=== PATIENT | female | born 1960 | race Caucasian/White ===

== ENCOUNTER 2019-06-18 11:11 | Inpatient (IN) | payer OTHER, SELFPAY ==
[~2019-06-18 11:11] MED LIST: Azithromycin 250 MG TAB PO SCH
[2019-06-18] MEDS ORDERED: methylPREDNISolone Sod Succ/PF 125 MG/2 ML VIAL ONE (11:21)
[2019-06-18 11:31] LABS: Actual Bicarbonate (HCO3a) 11.1 mEq/L (22-28); Analyzer IN Cardio ER; Base Excess (BEa) -14.8 mEq/L (-2.0 to +3.0); CO2 Tension 26.7 mmHg (35.0-45.0); Calcium, Ionized 1.13 mmol/L (1.12-1.30); Carboxyhemoglobin (COHb) 0.1 gm% (0.0-3.0); Hemoglobin (Hb) 12.1 g/dL (12.0-16.0); O2 Tension (PaO2) 86.3 mmHg (80.0-100.0); Potassium - ABG Lab 5.13 mmol/L (3.70-5.30)
[2019-06-18 11:32] LABS: Puncture Site RBRACH; pH, Arterial 7.24 (7.35-7.45)
[2019-06-18 11:33] LABS: ALV-art Gradient 94.225 (0-20)
[2019-06-18 11:49] LABS: #Lymphocytes 0.8 thou/uL (1.20-3.40); #Monocytes 0.7 thou/uL (0.11-0.59); #Neutrophils 11.9 thou/uL (1.40-6.50); %Basophils 0.3 % (0.0-1.0); %Eosinophils 0.1 % (0.0-10.0); %Monocytes 4.8 % (0.0-10.0); %Neutrophils 88.7 % (42.0-75.0); Hemoglobin 11.7 g/dL (12.0-16.0); Mean Corpuscular Volume 93.9 fL (78.0-98.0); Mean Platelet Volume 8.1 fL (7.4-10.4); Platelet Count 337 thou/uL (130-400); RBC Distribution Width 14.9 % (11.5-14.5); Red Blood Cell (RBC) Count 3.91 mill/uL (4.20-5.40); White Blood Cell (WBC) Count 13.4 thou/uL (4.8-10.8)
--- NOTE | 2019-06-18 11:53 | RAD ---
EXAM: XR Chest 1 View Portable PROVIDED CLINICAL HISTORY: Dyspnea COMPARISON: None FINDINGS: Examination is limited by patient body habitus. Cardiac silhouette appears enlarged, which may be maira st partially on the basis of portable technique. Bibasilar pleural-parenchymal opacities are noted, left greater than right. There is no evidence for pneumothorax. IMPRESSION: 1. Cardiomegaly. 2. Bibasilar pleural-parenchymal opacity, left greater than right. This may reflect pleural fluid wit h adjacent atelectasis and/or infiltrate. Follow-up is recommended.
[2019-06-18 12:07] LABS: ALT (SGPT) 1048 U/L (8-55); AST (SGOT) 1452 U/L (5-34); Alkaline Phosphatase 89 U/L (40-110); Anion Gap 24 mmol/L (10-20); BUN (Urea Nitrogen) 17 mg/dL (9.8-20.1); Bilirubin, Total 1.4 mg/dL (0.2-1.2); Calc. Creatinine Clearance 0 mL/min (70-130); Calcium 8.9 mg/dL (7.8-10.44); Carbon Dioxide 17 mmol/L (22-29); Chloride 101 mmol/L (98-107); Estimated GFR-MDRD 40; Globulin 3.5 g/dL (2.4-3.5); Glucose 115 mg/dL (70-105); Potassium 4.6 mmol/L (3.5-5.1); Protein, Total 7.5 g/dL (6.0-8.3); Sodium 137 mmol/L (136-145)
[2019-06-18 12:29] LABS: CKMB 1.8 ng/mL (0-6.6)
[2019-06-18] MEDS ORDERED: Aspirin Chewable 81 MG TAB ONE (12:34)
[2019-06-18] MEDS ORDERED: Furosemide 40 MG/4 ML VIAL ONE ×2 (12:34→16:41)
--- NOTE | 2019-06-18 12:43 | PDOC.FPRHP ---
- History of Present Illness Chief Complaint: SOB / Cough History of Present Illness: Ms. Real is a 59yoF who sees [facility] who presents for difficulty breathing. She is accompanied by her son and daughter who assisted with giving the history. They report a cough and increasing shortness of breath for the past 2-2.5 weeks that has progressively been getting worse. In the last 12 hours it has significantly worsened, with increased work of breathing which is why the family brought her to the ER. She had subjective fevers last night, she woke with sweating. The cough has been dry for the most part, last night she has had yellow sputum. She has never had shortness of breath like this before. No known sick contacts, she has had no other URI symptoms. Family states that she had bronchitis about a month ago that she didn't get over. Of note, her mother recently . Her was Thursday of this week. ED Course: Asa 324, Lasix 40mg, DuoNeb x2, Methylprednisolone 125mg - Allergies/Adverse Reactions Allergies Allergy/AdvReac Type Severity Reaction Status Date / Time tramadol Allergy Verified 06/18/19 21:33 - History PMHx: HTN Borderline DM PVD PSHx: Stent x 2 (Bilateral common iliac artery stents) FHx: Father: , CHF Mother: recently , dementia Brother: DM, HTN Social: Smokes 0.5-1ppd x 40 years. Daily alcohol use, 1 bottle of wine q 1-2 days. Denies illicit drug use. - Review of Systems General: reports: fever/chills, night sweats. denies: weight/appetite/sleep changes Eyes: denies: eye pain, vision changes ENT: denies: nasal congestion, rhinorrhea Respiratory: reports: cough, congestion, shortness of breath, exercise intolerance Cardiovascular: reports: edema, paroxysmal nocturnal dyspnea, orthopnea. denies : chest pain, palpitation Gastrointestinal: reports: abdominal pain, other (reflux). denies: nausea, vomiting, diarrhea, constipation, GI bleeding Genitourinary: reports: incontinence. denies: dysuria, polyuria Skin: denies: rashes, lesions Musculoskeletal: reports: pain, other (difficulty walking - it is painful). denies: tenderness, stiffness Neurological: reports: weakness. denies: numbness, syncope, seizure Psychological: denies: anxiety, depression - Vital signs HR 114, BP 132/99, O2 98% on BiPap (12/6 30%FiO2), Respirations 20 - Physical Exam Constitutional: awake, alert and oriented, well developed -Constitutional: On bipap, short of breath HEENT: normocephalic and atraumatic, EOMI, conjunctiva clear, grossly normal vision, grossly normal hearing, MMM -HEENT: Poor dentition Neck: supple, trachea midline Chest: no-tender to palpation Heart: normal S1/S2, no murmurs/rubs/gallops -Heart: Tachycardic, 2+ pitting edema to the bilateral lower extremities -Lungs: Tachypneic, poor air movement, diminished breath sounds bilaterally, wheezes in the upper lung wadsworth. Abdomen: soft, non-tender, bowel sounds present, no masses/distention Musculoskeletal: normal structure, normal tone Neurological: no focal deficit, CN II-XII intact Skin: no rash/lesions, good turgor, capillary refill <2 seconds Heme/Lymphatic: no unusual bruising or bleeding, no purpura, no petechia Psychiatric: normal mood and affect, intact recent and remote memory FMR H&P: Results - Labs Result Diagrams: 06/19/19 04:14 06/19/19 04:14 Lab results: WBC 13.4 thou/uL (4.8-10.8) H 06/18/19 11:31 Hgb 11.7 g/dL (12.0-16.0) L 06/18/19 11:31 Hct 36.7 % (36.0-47.0) 06/18/19 11:31 MCV 93.9 fL (78.0-98.0) 06/18/19 11:31 Plt Count 337 thou/uL (130-400) 06/18/19 11:31 Neutrophils % 88.7 % (42.0-75.0) H 06/18/19 11:31 ABG pH 7.24 (7.35-7.45) L* 06/18/19 11:27 ABG pCO2 26.7 mmHg (35.0-45.0) L 06/18/19 11:27 ABG pO2 86.3 mmHg (80.0-100.0) 06/18/19 11:27 Sodium 137 mmol/L (136-145) 06/18/19 11:32 Potassium 4.6 mmol/L (3.5-5.1) 06/18/19 11:32 Chloride 101 mmol/L (98-107) 06/18/19 11:32 Carbon Dioxide 17 mmol/L (22-29) L 06/18/19 11:32 BUN 17 mg/dL (9.8-20.1) 06/18/19 11:32 Creatinine 1.34 mg/dL (0.6-1.1) H 06/18/19 11:32 Glucose 115 mg/dL (70-105) H 06/18/19 11:32 Calcium 8.9 mg/dL (7.8-10.44) 06/18/19 11:32 Total Bilirubin 1.4 mg/dL (0.2-1.2) H 06/18/19 11:32 AST 1452 U/L (5-34) H 06/18/19 11:32 ALT 1048 U/L (8-55) H 06/18/19 11:32 Alkaline Phosphatase 89 U/L (40-110) 06/18/19 11:32 CK-MB (CK-2) 1.8 ng/mL (0-6.6) 06/18/19 11:32 B-Natriuretic Peptide 1844.3 pg/mL (0-100) H 06/18/19 11:31 Serum Total Protein 7.5 g/dL (6.0-8.3) 06/18/19 11:32 Albumin 4.0 g/dL (3.5-5.0) 06/18/19 11:32 - EKG Interpretation EKG: Sinus tach - Radiology Interpretation Chest x-ray Status: report reviewed by me (1. Cardiomegaly. 2. Bibasilar pleural- parenchymal opacity, left greater than right. This may reflect pleural fluid with adjacent atelectasis and/or infiltrate. Follow-up is recommended.) FMR H&P: A/P - Problem List (1) CHF exacerbation Current Visit: Yes Status: Suspected Code(s): I50.9 - HEART FAILURE, UNSPECIFIED (2) COPD (chronic obstructive pulmonary disease) Current Visit: Yes Status: Suspected (3) HTN (hypertension) Current Visit: Yes Status: Acute Code(s): I10 - ESSENTIAL (PRIMARY) HYPERTENSION (4) PVD (peripheral vascular disease) Current Visit: Yes Status: Acute Code(s): I73.9 - PERIPHERAL VASCULAR DISEASE, UNSPECIFIED - Plan CHF, suspected, in acute exacerbation - Chest x-ray appears fluid overloaded. BNP 1844. 2+ LE Edema. - Initially required BiPap, improved with lasix and was able to tolerate being on room air. Admit to telemetry. - s/p 80mg total Lasix in ED. Will monitor strict I/O. Lasix 20mg IV BID ordered for tomorrow. - Echo ordered - Repeat chest x-ray tomorrow. COPD, suspected, in acute exacerbation - No formal diagnosis. 40-50pk year history. Wheezing in upper lung wadsworth, improved with DuoNeb. - DuoNebs Scheduled. Prednisone 40 daily. Azithromycin po daily. - Will monitor for improvement. - Recommend formal PFTs once well in outpatient setting. HTN - unclear home medication list, will reconcile and restart. Alcohol use disorder - Will add ASE protocol to monitor for and prevent withdrawal symptoms if they should arise. Transaminitis - AST / ALT markedly elevated. - Will order coag panel and test for Hepatitis. - Repeat CMP in the morning. Elevated troponin - 0.077 > 0.103 > 0.148 - Will continue to trend. Likely 2/2 demand ischemia from CHF exacerbation. - Denies chest pain. Disposition/LOS: Dispo: Stable, inpatient VTE PPX: lovenox Code: Full FMR H&P: Upper Level - Plan Date/Time: 06/18/19 1242 I, Martinez Serrano PGY2, have evaluated this patient and agree with findings/ plan as outlined by rn internal medicine resident. Pertinent changes/additions are listed here. 59yo F with pmh HTN and obesity presents in respiratory distress. Pt gave very limited history however he children disclosed that she does not follow with the doctor often in the last few years. She has extensive smoking history though she has no standing Dx of COPD or CHF. In hospital pt was in respiratory distress, CXR showed bibasilar fluid and cardiomegaly, BNP elevated, wheezing was heard on exam. Initially pt required bipap but was eventually weaned to NC in ER. We will admit her to tele for mgmt of acute hypoxic respiratory failure 2 /2 COPD exacerbation with steroids, duonebs, and O2prn, and for CHF with lasix IV BID, strict i/o daily weights. Will get echo and likely cardiology consult tomorrow for new onset CHF. All other chronic problems per the rn internal medicine note above. Addendum - Attending - Attending Attestation Date/Time: 06/19/19808 I personally evaluated the patient and discussed the management with the team on day of admission. I agree with the History, Examination, Assessment and Plan documented above with any addition or exceptions noted below. Clinical HF -diurese, ddx includes cirrhosis -TTE Elevated LFTs c inc INR -isch/hep/APAP -send infecitous workup, also consider congestive hepatopathy -RUQ sono RADHA on CKD -cardiorenal vs HRS vs other -diurese as clinically volume overloaded Likely COPD exac -vs wheezing from CHF -steroids, nebs -was off of bipap prior to leaving ER
[2019-06-18] MEDS ORDERED: Calcium Carbonate 500 MG ChewTAB PO PRN (13:30)
[2019-06-18] MEDS ORDERED: Senokot S 8.6-50 MG TAB PO PRN (13:30)
[2019-06-18] MEDS ORDERED: Ondansetron ODT 4 MG TAB PO PRN (13:30)
[2019-06-18] MEDS ORDERED: Guaifenesin DM 100-10/5 ML UDCUP PO PRN (13:30)
[2019-06-18 15:01] LABS: Hemoglobin A1c 5.7 % (4.0-6.0)
[2019-06-18 15:20] LABS: Troponin I 0.103 ng/mL (< 0.028)
[2019-06-18 15:34] LABS: HIV (1/2) Antibody/Antigen Non-Reactive (NonReactive); HIV 1/2 INDEX 0.08 S/CO (<1.00); Hep C IgG Ab Non-Reactive (NonReactive); Hep C Index 0.24 S/CO (0-0.79); Syphilis Antibody Nonreactive (Nonreactive); Syphilis Antibody Index 0.07 S/CO (<1.00 Non-Reactive)
[2019-06-18] MEDS ORDERED: Diazepam 5 MG TAB PO PRN (17:38)
[2019-06-18] MEDS ORDERED: Thiamine HCl 200 MG/2 ML VIAL IM SCH (17:45)
[2019-06-18] MEDS ORDERED: Diazepam 5 MG TAB PO SCH (17:45)
[2019-06-18 18:04] LABS: Troponin I 0.148 ng/mL (< 0.028)
[2019-06-18 18:38] LABS: HBCM Index 0.06 S/CO (0-0.79); HBSAg Index 0.31 S/CO (0-0.99); Hep A IgM AB Non-Reactive (NonReactive); Hep A IgM S/CO 0.11 S/CO (0-0.79); Hep B Surf Ag Non-Reactive S/CO (NonReactive); Hep C IgG Ab Non-Reactive (NonReactive); Hepatitis B Core IgM Abs Non-Reactive (NonReactive)
[2019-06-18] MEDS: Furosemide 20 MG/2 ML VIAL SLOW IVP SCH (19:58)
[2019-06-18 21:22] LABS: Troponin I 0.125 ng/mL (< 0.028)
[2019-06-18] MEDS: Nicotine 14 MG PATCH TD SCH (21:22)
[2019-06-19 01:08] LABS: Troponin I 0.125 ng/mL (< 0.028)
[2019-06-19] MEDS: Benzonatate 100 MG CAP PO PRN (02:42)
[2019-06-19] MEDS ORDERED: Diazepam 5 MG TAB PO PRN (04:00)
[2019-06-19] MEDS: Furosemide 20 MG/2 ML VIAL SLOW IVP SCH ×2 (04:56→12:54)
[2019-06-19 05:14] LABS: INR-International Normal Ratio 2.2; PTT 40.6 SEC (22.9-36.1); Prothrombin Time 24.2 SEC (12.0-14.7)
[2019-06-19 05:15] LABS: #Lymphocytes 0.5 thou/uL (1.20-3.40); #Monocytes 0.4 thou/uL (0.11-0.59); #Neutrophils 13.5 thou/uL (1.40-6.50); %Eosinophils 0.1 % (0.0-10.0); %Lymphocytes 3.7 % (21.0-51.0); %Monocytes 2.7 % (0.0-10.0); %Neutrophils 93.5 % (42.0-75.0); Hemoglobin 10.3 g/dL (12.0-16.0); Mean Corpuscular HGB CONC 33.6 g/dL (32.0-36.0); Mean Corpuscular Hemoglobin 30.5 pg (27.0-31.0); Mean Platelet Volume 8.6 fL (7.4-10.4); Platelet Count 168 thou/uL (130-400); RBC Distribution Width 14.8 % (11.5-14.5); Red Blood Cell (RBC) Count 3.36 mill/uL (4.20-5.40); White Blood Cell (WBC) Count 14.5 thou/uL (4.8-10.8)
[2019-06-19 05:32] LABS: Anion Gap 18 mmol/L (10-20); BUN (Urea Nitrogen) 27 mg/dL (9.8-20.1); Calc. Creatinine Clearance 69 mL/min (70-130); Calcium 8.8 mg/dL (7.8-10.44); Carbon Dioxide 21 mmol/L (22-29); Chloride 100 mmol/L (98-107); Estimated GFR-MDRD 43; Glucose 86 mg/dL (70-105); Potassium 4.2 mmol/L (3.5-5.1); Sodium 135 mmol/L (136-145)
[2019-06-19 05:38] LABS: Troponin I 0.122 ng/mL (< 0.028)
--- NOTE | 2019-06-19 06:34 | PDOC.FM ---
- Subjective Subjective: Overnight residents were paged for hypoxia with SpO2 in 80's on 4L. She was evaluated and repeat ABG was added as well as another 40 of lasix IV. She was noted ot have 13 beat run of SVT, she was asymptomatic. See event note for details. This morning she was using accessory muscles to breath but appeared comfortable. Duoneb was placed during time of evaluation. Did endorse SOB but improved from overnight. Endorses cough. Denies fever, chills. - Objective MAR Reviewed: Yes Vital Signs & Weight: Vital Signs (12 hours) Temp Pulse Resp BP Pulse Ox 06/19/19 04:55 118 H 26 H 136/83 94 L 06/19/19 03:25 99.5 F 115 H 26 H 126/74 98 06/19/19 02:10 115 H 20 06/18/19 22:38 22 H 06/18/19 21:15 98.7 F 113 H 22 H 136/61 96 06/18/19 19:52 103 H 16 93 L Weight Weight 92.164 kg I&O: 06/17/19 06/18/19 06/19/19 06:59 06:59 06:59 Intake Total 1440 Output Total 250 Balance 1190 Result Diagrams: 06/19/19 04:14 06/19/19 04:14 Phys Exam - Physical Examination In mild distress HEENT: moist MMs Neck: supple Bilateral crackles with expiratory wheezing heard in upper lung w[place]sworth Cardiovascular: RRR, no significant murmur Gastrointestinal: soft, non-tender Trace edema LE Neurological: moves all 4 limbs Psychiatric: normal affect, A&O x 3 Skin: no rash Dx/Plan - Plan Plan: Suspect acute CHF exacerbation - Currently on NC - Lasix 60mg IV this AM. Unclear how much she diuresed overnight, added strict I &Os - Echo ordered - Repeat CXR pending - Repeat ABG pending COPD, suspected, in acute exacerbation - No formal diagnosis. 40-50pk year history - DuoNebs Scheduled. Prednisone 40 daily. - Will check procal from yesterday and consider discontinuing Azithromycin - PFTs outpatient 13 beats of SVT - Cards consulted. Asymptomatic HTN - Continue home meds Alcohol use disorder - ASE 4 this AM Transaminitis - AST/ALT markedly elevated. Repeat liver panel pending. - Hep studies and RUQ US pending Elevated troponin, downtrending - Likely 2/2 demand ischemia from CHF exacerbation DVT Ppx: Lovenox Code Status: Full Addendum - Attending - Attending Attestation Date/Time: 06/19/19 4545 I personally evaluated the patient and discussed the management with the team. I agree with the History, Examination, Assessment and Plan documented above with any addition or exceptions noted below. Improved from yesterday. She is now febrile. Will check flu and expand antibiotics. Appreciate cards and GI's input.
[2019-06-19 06:43] LABS: CO2 Tension 31.1 mmHg (35.0-45.0); O2 Tension (PaO2) 113.6 mmHg (80.0-100.0); pH, Arterial 7.39 (7.35-7.45)
[2019-06-19 06:44] LABS: ALV-art Gradient 104.205 (0-20); Actual Bicarbonate (HCO3a) 18.8 mEq/L (22-28); Analyzer IN Cardio OR; Base Excess (BEa) -5.1 mEq/L (-2.0 to +3.0); Calcium, Ionized 1.09 mmol/L (1.12-1.30); Carboxyhemoglobin (COHb) 0.3 gm% (0.0-3.0); Hemoglobin (Hb) 10.9 g/dL (12.0-16.0); Puncture Site RBRACH
[2019-06-19] MEDS ORDERED: Furosemide 40 MG/4 ML VIAL SLOW IVP SCH (06:45)
--- NOTE | 2019-06-19 06:46 | PDOC.BPN ---
- Brief Progress Note Paged to bedside for persistent o2 sat in the high 80s Patient on 4L o2 which is what she was on at time of admission She can speak in complete sentences but get SOB at the end of the sentences Decreased sounds at the bases, exp wheeze throughout Will check ABG, suspect there is a component of undiagnosed COPD Moved duoneb up, moved up steroids, she had not received any to this point Added 40mg IV lasix one time for total of 60mg IV this AM She had not been on strict I/Os overnight, added Patient had a 13 beat run of SVT noted on tele, marketing pr intern was in the room with her when this occurred and she did not have symptoms Will add on mag, potassium was 4.1 Awaiting Cards eval for new onset HF, may be candidate for cath If patient worsens she would need to go an Bipap and likely move to IMCU. Will hold off at this time and try above treatments first.
[2019-06-19] MEDS ORDERED: predniSONE 20 MG TAB PO SCH ×2 (07:00→09:00)
[2019-06-19 07:11] LABS: ALT (SGPT) 3510 U/L (8-55); Alkaline Phosphatase 95 U/L (40-110); Bilirubin, Direct 1.1 mg/dL (0.1-0.3); Bilirubin, Total 1.6 mg/dL (0.2-1.2); Protein, Total 7.3 g/dL (6.0-8.3)
[2019-06-19 07:23] LABS: AST (SGOT) Greater than 3500 U/L (5-34)
--- NOTE | 2019-06-19 07:41 | PDOC.BPN ---
- Brief Progress Note Called to bedside for code green, code green was called for fever of 100.9 and nursing staff concern for overall status Patient just revieved lasix 5 min ago, Prednisone 20min ago ABG much improved from admission Patient states she feels no different from time of evaluation at 0630 She has no increased SOB, denies CP, no interval arrhythmias noted on tele CXR still pending Will add blood cultures and Rocephin 1g IV Patient is tachycardic, consider CTA to r/o PE if patient does not improve with above treatments
[2019-06-19] MEDS: Acetaminophen 325 MG TAB PO PRN (07:46)
--- NOTE | 2019-06-19 09:01 | ULT ---
GALLBLADDER ULTRASOUND: HISTORY: Elevated LFTs. FINDINGS: Real-time imaging of the right upper quadrant shows a gallbladder with some moderate gallbladder wall thickening and edema within the gallbladder wall. There are no stones identified. The common duct is 4 mm. The liver shows no focal abnormalities. The right kidney is normal in size and not obstructed. The pancreas is largely obscured. IMPRESSION: 1. Thick-walled, edematous appearing gallbladder wall. The possibility of an acalculous cholecystitis is not excluded. Consideration for a hepatobiliary scan is recommended. 2. Incidental note is made of what appears to be a small right pleural effusion. POS: [facility]
--- NOTE | 2019-06-19 09:15 | RAD ---
PORTABLE CHEST: HISTORY: COPD exacerbation. COMPARISON: Prior day's study. FINDINGS: Bibasilar pleural and parenchymal lung changes are again demonstrated. Changes are greater within the left base. There is some slight improvement to these changes, particularly the changes in the right base, with what appears to be improving right sided effusion and atelectasis. IMPRESSION: 1. Cardiomegaly. 2. Bibasilar pleural and parenchymal lung changes. The right-sided changes are showing some slight im provement as compared to the prior examination. POS: [facility]
[2019-06-19] MEDS: Enoxaparin Sodium 40 MG/0.4 ML SYRINGE SC SCH (09:16)
[2019-06-19] MEDS: Folic Acid 1 MG TAB PO SCH (09:17)
[2019-06-19] MEDS: Multivitamin W/ Minerals 1 TAB PO SCH (09:17)
[2019-06-19] MEDS: Magnesium Oxide 400 MG TAB PO SCH (09:17)
[2019-06-19] MEDS: Thiamine 100 MG TAB PO SCH (09:17)
[2019-06-19] MEDS: cefTRIAXone\\ROCEPHIN 1 GM in Sodium Chloride 0.9% 100 ML IVPB SCH (09:41)
[2019-06-19] MEDS ORDERED: Carvedilol 3.125 MG TAB PO SCH ×2 (10:30→17:00)
[2019-06-19] MEDS: Nicotine 14 MG PATCH TD SCH (12:54)
--- NOTE | 2019-06-19 13:02 | CON ---
DATE OF CONSULTATION: 06/19/2019 REASON FOR CONSULTATION: Acute systolic heart failure. PRIMARY PROVIDER: Dr. Femi Aden. HISTORY OF PRESENT ILLNESS: Ms. Real is an unfortunate 59-year-old with previous history of tobacco abuse, who recently presented with increased shortness of breath and not feeling well. She has had lower extremity edema in addition to orthopnea. She also describes PND. She states she quit all tobacco products 3 days ago. She does have a history of PVD status post stent placement to the right and left iliac arteries by Dr. Jas Soto in 2017. She denies chest pain, pressure, or other associated symptoms. She also has had subjective fevers while at home. PAST MEDICAL HISTORY: 1. Severe PVD status post stent placement to the right and left common iliac arteries of the bifurcation. 2. Diabetes mellitus. 3. Hypertension. 4. Tobacco abuse. 5. Poor compliance. SURGICAL HISTORY: As above. SOCIAL HISTORY: Continues to smoke 1/2 to 1 pack per day and has for 40 years. Positive alcohol use. No current illicit drug use. REVIEW OF SYSTEMS: A 10-point review of systems is reviewed as above, otherwise negative. PHYSICAL EXAMINATION: VITAL SIGNS: . PHYSICAL EXAMINATION: GENERAL: Patient is a pleasant 59-year-old lady who is in no acute distress. The patient appears their stated age. She does appear somewhat disheveled. VITAL SIGNS: Blood pressure 128/78, pulse 104, temperature 98.7. T-max 100.9. NEUROLOGIC: The patient is alert and oriented x3 with no focal neurologic deficits. HEENT: Sclerae without icterus. Mouth has moist mucous membranes with normal pallor. Poor dentition. NECK: No JVD. Carotid upstroke brisk. No bruits bilaterally. LUNGS: Clear to auscultation with unlabored respirations. BACK: No scoliosis or kyphosis. CARDIAC: Regular rate and rhythm with normal S1 and S2. No S3 or S4 noted. No significant rubs, murmurs, thrills, or gallops noted throughout the precordium. PMI is not displaced. There is no parasternal heave. ABDOMEN: Soft, nontender, nondistended. No peritoneal signs present. No hepatosplenomegaly. No abnormal striae. EXTREMITIES: 2+ femoral and 2+ dorsalis pedis pulses. No cyanosis, clubbing, or edema. SKIN: No gross abnormalities. PERTINENT LABORATORY DATA: White blood cell count 14.5, hemoglobin 10.3, hematocrit 30.6, and platelet count 168. EKG shows sinus tachycardia with no acute ST-T wave changes present. Creatinine 1.27. Peak troponin 0.1. Total bilirubin 1.6, AST and ALT greater than 3500 and 3510. Echo Doppler shows LVEF 20% to 25% with hypokinesis along the lateral, inferior, and septal wall, [id number] MR with [id number] TR, and moderate pulmonary hypertension. Cannot exclude vegetation. IMPRESSION: 1. Acute systolic heart failure. 2. Tobacco abuse. 3. Likely elevated enzymes from passive congestion. 4. Elevated troponin. 5. Hypertension. RECOMMENDATIONS: At this point, I would recommend aggressive heart failure treatment. Currently, she is on Lasix 20 mg IV. We will increase to 40 mg IV b.i.d. Consider adding metolazone. We will also add low-dose beta-fab therapy and titrate as needed. She will need further disposition with coronary angiography and may need a PRISCILLA. She does have a mild fever, poor dentition, and an area along the mitral valve more suggestive of calcium buildup and a nonmobile mass, but cannot completely exclude endocarditis. Once she is more stable, would recommend PRISCILLA and coronary angiography. I discussed the procedure in full detail with Ms. Prestonsharmin. The risks of the procedure were also discussed. The risks of the procedure include but are not limited to the following: , stroke, OK, need for emergency surgery, loss of limb, bleeding, and infection, as well as a reaction to the dye causing kidney failure and needing long-term dialysis. I also discussed the risks of PCI to include all of the above including coronary dissection and perforation in addition to acute stent thrombosis and restenosis. All questions about the procedure were answered. Given the above, the patient agreed to proceed with coronary angiography and possible PCI. The patient states she is unlikely to be compliant with medicines for 6 months, so if a stent is needed, would proceed with a bare-metal stent. The patient does have multiple conditions that at this point have not been addressed with poor compliance in the past. Job ID: [id number]
[2019-06-19] MEDS ORDERED: Phytonadione 10 MG/ML AMP PO SCH (18:00)
[2019-06-19] MEDS ORDERED: Furosemide 40 MG/4 ML VIAL IVP SCH (18:30)
[2019-06-19] MEDS: Azithromycin 250 MG TAB PO SCH (20:37)
[2019-06-19] MEDS: Oseltamivir 75 MG CAP PO SCH (20:37)
[2019-06-19] MEDS ORDERED: FLU VACC QS2019-20(6MOS UP)/PF 60 MCG/0.5 ML SYRINGE IM ONE (21:00)
--- NOTE | 2019-06-19 23:52 | CON ---
DATE OF CONSULTATION: 06/19/2019 REASON FOR CONSULTATION: Transaminitis. CONSULTING PROVIDER: Dr. Nicole Sidhu. HISTORY OF PRESENT ILLNESS: The patient is a 59-year-old female with past medical history of hypertension, diabetes, peripheral vascular disease, congestive heart failure, COPD, alcohol abuse, tobacco abuse, and chronic lower back pain, who initially presented to the hospital with complaints of shortness of breath. She states that over the course of the last 2 to 3 weeks, she had been progressively getting increasing shortness of breath, both at rest and exertion with tachypnea noted by the patient's daughters. With these increasing symptoms, it prompted her to come to the [facility] ER for further evaluation and while in the ER, she was noted to be tachypneic as well as hypervolemic in addition to a significant transaminitis. She was ultimately admitted to the hospital for further evaluation. When interviewing the patient concerning her transaminitis, she states that she had been taking an antihypertensive medication approximately 6 months ago, but stopped it in favor of taking beetroot daily as interval supplement, taking approximately 6 to 9 of those pills every day. She also states that she had been taking ibuprofen 400 to 800 mg daily for the last year in addition to her 81 mg aspirin daily. During this same time period, she also endorsed the ingestion of approximately 2 glasses per day in addition to a bottle of whisky throughout the course of the week in addition to smoking 1/2 to 1 pack per day. She denies any sick contacts, exposure to untreated water sources, eating mushrooms, recent travel to tropical areas, change in her current prescription of medications, or underlying liver disease. Currently, she states that she has been having subjective fevers and chills, bilateral lower extremity edema, weight loss of approximately 20 pounds over the last year and per the patient's daughters, has been having cognition problems related to executive function. She currently denies any nausea, vomiting, hematemesis, melena, hematochezia, jaundice, dysphagia, odynophagia, or ascites. Of note, the patient was tested for influenza A on admission and is currently positive. REVIEW OF SYSTEMS: A 10-category review of systems was obtained with all responses negative except for the pertinent positives as listed in the HPI. PAST MEDICAL HISTORY: As per HPI. PAST SURGICAL HISTORY: Bilateral iliac artery stent placement. FAMILY HISTORY: Denies any GI malignancies. SOCIAL HISTORY: Smokes approximately 1/2 to 1 pack per day x40 years. Drinks approximately 2 glasses of wine per day in addition to 1 bottle of whiskey per week, but denies any illicit drug use. OUTPATIENT MEDICATIONS: Reviewed (although cannot guarantee accuracy due to the patient's noncompliance). ALLERGIES: TRAMADOL. PHYSICAL EXAMINATION: VITAL SIGNS: Temperature 97.8, pulse 108, blood pressure 134/84, respiratory rate 23, saturating 95% on 4 L nasal cannula. GENERAL: The patient was lying in bed, in no acute distress. Alert and oriented x4. HEENT/NECK: Normocephalic, atraumatic. Neck supple. No JVD or scleral icterus noted. CARDIOVASCULAR: Tachycardic rate, but regular rhythm with no discernible murmurs, gallops, or rubs. RESPIRATORY: Coarse breath sounds and mild expiratory wheezing auscultated in all lung wadsworth. ABDOMEN: Normoactive bowel sounds. Soft, nondistended, and nontender. No hepatomegaly palpated on physical exam. EXTREMITIES: No cyanosis, clubbing, or edema. LABORATORY DATA: CBC with a white blood cell count of 14.5, hemoglobin 10.3, hematocrit 30.6, and platelets 168. Chemistry with a sodium of 135, potassium 4.2, chloride 100, CO2 of 21, BUN 27, creatinine 1.27, and glucose 86. AST greater than 3500, ALT 3510, alkaline phosphatase 95, total bilirubin 1.6, albumin 4.0. INR 2.2. Viral hepatitis panel for A, B, and C was negative, HIV was negative, and syphilis was negative. IMAGING DATA: Right upper quadrant ultrasound obtained on June 19, 2019 (without Doppler) showed some moderate gallbladder wall thickening with edema within the gallbladder wall, but no other abnormalities with the common bile duct measuring 4 mm, no cirrhotic morphology. Incidental finding of what appeared to be a small right pleural effusion was seen during that exam. ASSESSMENT AND PLAN: The patient is a 59-year-old female with past medical history of hypertension, diabetes, peripheral vascular disease, congestive heart failure, chronic obstructive pulmonary disease, chronic lower back pain, tobacco abuse, and alcohol abuse, presenting with profound transaminitis. Significant transaminitis/shock liver: The patient was initially admitted to the hospital with increasing symptoms of shortness of breath and dyspnea on exertion as well as weakness and inability to carry out activities of daily living. On admission, she was noted to have profoundly elevated LFTs in a hepatocellular pattern with an AST and ALT predominance of greater than 3500. However, she does have preserved synthetic function with a total bilirubin of 1.6 and albumin of 4.0. However, she does have an elevated INR of 2.2 while not on anticoagulation (per patient), which is concerning for hepatic synthetic dysfunction as well. The elevated INR could be potentially seen with sepsis/disseminated intravascular coagulation as well and with her concurrent diagnosis of influenza A, is not outside the realm of possibility. At this time, the differential for her significantly elevated transaminases could include Budd-Chiari, congestive hepatopathy with worsening congestive heart failure, autoimmune hepatitis, Rusty disease, medication/toxin (less likely) and/or gastrointestinal neoplasm (less likely). RECOMMENDATIONS: 1. We will proceed with a liver workup to include serologies for autoimmune hepatitis, Rusty disease, Anahi-Weiner virus, cytomegalovirus. 2. Would proceed with a right upper quadrant ultrasound with Doppler for evaluation of both the hepatic and portal vasculature contributing to transaminitis. 3. Would administer vitamin K 5 mg orally for an elevated INR and possible vitamin K deficiency given her poor oral intake as an outpatient. 4. Would consider full liver workup to include hemochromatosis, alpha-1 antitrypsin deficiency, and primary biliary cholangitis given that the transaminitis has an unknown chronicity. 5. Would treat her seasonal influenza (mild transaminitis can be seen with pandemic influenza, but not seasonal influenza). We will continue to follow. Please call with any questions. Job ID: [id number]
[2019-06-20] MEDS: Benzonatate 100 MG CAP PO PRN ×3 (00:28→23:21)
[2019-06-20 04:35] LABS: #Lymphocytes 1.3 thou/uL (1.20-3.40); #Monocytes 0.6 thou/uL (0.11-0.59); #Neutrophils 14.5 thou/uL (1.40-6.50); %Basophils 0.1 % (0.0-1.0); %Eosinophils 0.3 % (0.0-10.0); %Lymphocytes 7.6 % (21.0-51.0); %Monocytes 3.7 % (0.0-10.0); %Neutrophils 88.4 % (42.0-75.0); Hemoglobin 10.2 g/dL (12.0-16.0); Mean Corpuscular HGB CONC 32.6 g/dL (32.0-36.0); Mean Corpuscular Hemoglobin 29.8 pg (27.0-31.0); Mean Corpuscular Volume 91.2 fL (78.0-98.0); Mean Platelet Volume 8.5 fL (7.4-10.4); Platelet Count 178 thou/uL (130-400); RBC Distribution Width 14.8 % (11.5-14.5); Red Blood Cell (RBC) Count 3.43 mill/uL (4.20-5.40); White Blood Cell (WBC) Count 16.4 thou/uL (4.8-10.8)
[2019-06-20 04:39] LABS: INR-International Normal Ratio 1.8; PTT 34.8 SEC (22.9-36.1); Prothrombin Time 21.1 SEC (12.0-14.7)
[2019-06-20 04:46] LABS: ALT (SGPT) 3054 U/L (8-55); Albumin 3.5 g/dL (3.5-5.0); Alkaline Phosphatase 98 U/L (40-110); Anion Gap 12 mmol/L (10-20); BUN (Urea Nitrogen) 36 mg/dL (9.8-20.1); Bilirubin, Total 1.2 mg/dL (0.2-1.2); Calc. Creatinine Clearance 92 mL/min (70-130); Calcium 8.3 mg/dL (7.8-10.44); Carbon Dioxide 28 mmol/L (22-29); Chloride 100 mmol/L (98-107); Estimated GFR-MDRD 59; Glucose 80 mg/dL (70-105); Iron 69 ug/dL (50-170); Iron Binding Capacity, Total 281 mcg/dL (265-497); Potassium 4.3 mmol/L (3.5-5.1); Protein, Total 6.5 g/dL (6.0-8.3); Sodium 136 mmol/L (136-145)
[2019-06-20 04:49] LABS: AST (SGOT) Greater than 3500 U/L (5-34)
[2019-06-20] MEDS ORDERED: Sodium Chloride 0.9% 10 ML ONE (05:30)
[2019-06-20] MEDS ORDERED: Furosemide 20 MG/2 ML VIAL SLOW IVP SCH (06:00)
[2019-06-20] MEDS: Furosemide 40 MG/4 ML VIAL SLOW IVP SCH ×2 (06:02→13:33)
--- NOTE | 2019-06-20 07:02 | PDOC.CPN ---
- Subjective Date: 06/20/19 Time: 06:58 Interval history: Feels better today. Less SOB but still not able to lie flat. (+) for flu - Objective Allergies/Adverse Reactions: Allergies Allergy/AdvReac Type Severity Reaction Status Date / Time tramadol Allergy Verified 06/18/19 21:33 Visit Medications: Current Medications Acetaminophen (Tylenol) 650 mg PO Q4H PRN PRN Reason: Headache/Fever/Mild Pain (1-3) Last Admin: 06/19/19 07:46 Dose: 650 mg Albuterol/Ipratropium (Duoneb) 3 ml NEB [id number] [facility] Last Admin: 06/20/19 06:50 Dose: 3 ml Azithromycin (Zithromax) 500 mg PO 2100 [facility] Stop: 06/23/19 23:00 Last Admin: 06/19/19 20:37 Dose: 500 mg Benzonatate (Tessalon) 100 mg PO Q4H PRN PRN Reason: Cough Last Admin: 06/20/19 00:28 Dose: 100 mg Calcium Carbonate (Tums) 1,000 mg PO Q4H PRN PRN Reason: Heartburn or Indigestion Carvedilol (Coreg) 3.125 mg PO BID-WM [facility] Last Admin: 06/19/19 16:34 Dose: 3.125 mg Diazepam (Valium) 5 mg PO Q4H PRN PRN Reason: FOR ASE 10 OR GREATER Enoxaparin Sodium (Lovenox) 40 mg SC 0900 [facility] Last Admin: 06/19/19 09:16 Dose: 40 mg Folic Acid (Folvite) 1 mg PO DAILY [facility] Last Admin: 06/19/19 09:17 Dose: 1 mg Furosemide (Lasix) 40 mg SLOW IVP 0600,1400 [facility] Last Admin: 06/20/19 06:02 Dose: 40 mg Guaifenesin/Dextromethorphan (Robitussin Dm) 15 ml PO Q4H PRN PRN Reason: Cough Ceftriaxone Sodium 1 gm/ (Sodium Chloride) 100 mls @ 200 mls/hr IVPB Q24HR [facility] Last Admin: 06/19/19 09:41 Dose: 100 mls Vancomycin HCl 1.75 gm/ Sodium (Chloride) 500 mls @ 250 mls/hr IVPB 1600 [facility] Iron/Minerals/Multivitamins (Theragran M) 1 tab PO DAILY [facility] Last Admin: 06/19/19 09:17 Dose: 1 tab Magnesium Oxide (Magnesium Oxide) 400 mg PO DAILY [facility] Last Admin: 06/19/19 09:17 Dose: 400 mg Miscellaneous Medication (Pharmacy To Dose) 1 each IVPB PRN PRN PRN Reason: Pharmacy to dose Nicotine (Nicoderm Patch) 14 mg TD Q24HR [facility] Last Admin: 06/19/19 12:54 Dose: 14 mg Ondansetron HCl (Zofran Odt) 4 mg PO Q6H PRN PRN Reason: Nausea/Vomiting Oseltamivir Phosphate (Tamiflu) 75 mg PO BID [facility] Stop: 06/24/19 09:01 Last Admin: 06/19/19 20:37 Dose: 75 mg Prednisone (Prednisone) 40 mg PO QAM[facility] Stop: 06/24/19 08:01 Senna/Docusate Sodium (Senokot S) 2 tab PO BIDPRN PRN PRN Reason: Constipation Sodium Chloride (Flush - Normal Saline) 10 ml IVF PRN PRN PRN Reason: Saline Flush Thiamine HCl (Thiamine) 100 mg PO DAILY [facility] Last Admin: 06/19/19 09:17 Dose: 100 mg Vital Signs & Weight: Vital Signs Temp Pulse Resp BP BP BP Pulse Ox 06/20/19 06:50 80 14 06/20/19 04:00 114/65 06/20/19 03:56 98.4 F 95 20 114/65 97 06/20/19 02:11 95 16 06/20/19 00:00 112/61 06/19/19 23:54 98.4 F 93 20 112/61 97 06/19/19 22:29 91 16 06/19/19 20:00 129/60 95 06/19/19 19:35 97.5 F L 95 20 129/60 95 Weight 196 lb 12.8 oz - Physical Exam General: alert & oriented x3 Neck: no masses, no bruit Cardiac: no murmur, regular rate, regular rhythm Lungs: normal exam, other (crackles bilaterally) Neuro: grossly intact Abdomen: non-tender - Labs Result Diagrams: 06/20/19 04:01 06/20/19 04:01 Troponin/CKMB CK-MB (CK-2) 1.8 ng/mL (0-6.6) 06/18/19 11:32 Troponin I 0.122 ng/mL (< 0.028) H 06/19/19 04:14 - Assessment/Plan Assessment/Plan: Acute systolic heart failure Tobacco use Non-complinace Elevated AST/ALT Contiue diuresis GI input on inc LFT's not felt to be all passive congesdtion Pt will need angio prior to DC to assess coronary anatomy Would like her diuresed prior to angio BC have been drawn and negative so far On BB, ACEI Once BC (-), and LFT's trending down, proceed with angio and PRISCILLA
--- NOTE | 2019-06-20 07:07 | PDOC.FM ---
- Subjective Subjective: pt resting comfortably on bedside commode, good urine output, denies SOB/CP - Objective Vital Signs & Weight: Vital Signs (12 hours) Temp Pulse Resp BP BP BP Pulse Ox 06/20/19 06:50 80 14 06/20/19 04:00 114/65 06/20/19 03:56 98.4 F 95 20 114/65 97 06/20/19 02:11 95 16 06/20/19 00:00 112/61 06/19/19 23:54 98.4 F 93 20 112/61 97 06/19/19 22:29 91 16 06/19/19 20:00 129/60 95 06/19/19 19:35 97.5 F L 95 20 129/60 95 Weight Weight 89.267 kg I&O: 06/18/19 06/19/19 06/20/19 06:59 06:59 06:59 Intake Total 1440 1548 Output Total 250 2500 Balance 1190 -952 Result Diagrams: 06/20/19 04:01 06/20/19 04:01 Phys Exam - Physical Examination Constitutional: NAD HEENT: moist MMs Neck: no JVD Gastrointestinal: non-tender, no distention Musculoskeletal: no edema Neurological: moves all 4 limbs Psychiatric: normal affect Skin: no rash Dx/Plan (1) HTN (hypertension) Code(s): I10 - ESSENTIAL (PRIMARY) HYPERTENSION Status: Acute (2) PVD (peripheral vascular disease) Code(s): I73.9 - PERIPHERAL VASCULAR DISEASE, UNSPECIFIED Status: Acute (3) CHF exacerbation Code(s): I50.9 - HEART FAILURE, UNSPECIFIED Status: Suspected (4) COPD (chronic obstructive pulmonary disease) Status: Suspected - Plan Plan: HFrEF - cardiomegaly, pleural effusion, bnp/trop elevated on admission - Echo reveals 20% EF, valve abnormalities, cannot exclude endocarditis - cardiology consulted, appreciate recs - cath/PRISCILLA planned possible endocarditis - febrile seen on TTE, vanc, rocephin began Transaminitis - AST/ALT markedly elevated on admission - full panel workup pending, US reveals GB wall edema COPD, suspected, in acute exacerbation - No formal diagnosis. 40-50pk year history - DuoNebs Scheduled. Prednisone 40 daily, azithro influenza A - tamiflu HTN - Continue home meds Alcohol use disorder - monitor Elevated troponin, downtrending - Likely 2/2 demand ischemia from CHF exacerbation DVT Ppx: Lovenox Code Status: Full dispo: continue diuresis and further workup Addendum - Attending - Attending Attestation Date/Time: 06/20/19 1151 I personally evaluated the patient and discussed the management with Dr. Gaming I agree with the History, Examination, Assessment and Plan documented above with any addition or exceptions noted below. 59 yo female heavy smoker with 4 weeks progressive cough found with HFrEF, Influenza A, Exacerbation COPD and markedly elevated LFTs questionable etiology with work up in progress. Patient remains with bibasilar rales and 1 + pitting edema continue gentle diuresis will need further Cardiac evaluation when more stable. Appreciate recommendations from Specialist. GBUS noted wall thickening which could be congestive change will follow expectantly continue to trend labs and observe for continued clinical progress.
--- NOTE | 2019-06-20 08:23 | ULT ---
HEPATIC DOPPLER: HISTORY: Elevated liver function tests. TECHNIQUE: Grayscale, color flow, Doppler imaging and spectral waveform analysis of the liver is performed. FINDINGS: The head of the pancreas has a normal echotexture. The remainder the pancreas is obscured by bowel ga s. Visualized IVC and aorta are unremarkable. Hepatic parenchyma has a normal echotexture. No hepatic masses or intrahepatic biliary dilatation. Th e contour of the hepatic margin is maintained. Right hepatic lobe measures 17.6 cm. Right kidney has a normal cortical echotexture. No hydronephrosis. Right kidney measures 11.9 x 5.0 x 4.8 cm No sonographic evidence of cholelithiasis, gallbladder wall thickening or pericholecystic fluid. Gall bladder wall is thickened measuring 0.4 cm. [place]'s sign: Negative. Spleen has a normal echotexture, measuring 12.1 cm. Hepatic Doppler: There is patency and appropriate directional flow of the IVC, aorta, main portal vei n, left portal vein, right portal vein, middle hepatic vein, right hepatic vein, left hepatic vein, hepatic artery, splenic vein and artery. IMPRESSION: 1. Normal hepatic Doppler. 2. Nonspecific gallbladder wall thickening. HIDA scan if clinically warranted. Transcribed Date/Time: 06/20/2019 8:39 AM
[2019-06-20] MEDS: Carvedilol 3.125 MG TAB PO SCH ×2 (09:48→16:15)
[2019-06-20] MEDS: predniSONE 20 MG TAB PO SCH (09:49)
[2019-06-20] MEDS: Losartan 25 MG TAB PO SCH (09:49)
[2019-06-20] MEDS: Magnesium Oxide 400 MG TAB PO SCH (09:49)
[2019-06-20] MEDS: Folic Acid 1 MG TAB PO SCH (09:49)
[2019-06-20] MEDS: Oseltamivir 75 MG CAP PO SCH ×2 (09:50→21:11)
[2019-06-20] MEDS: Thiamine 100 MG TAB PO SCH (09:50)
[2019-06-20] MEDS: Acetaminophen 325 MG TAB PO PRN (09:50)
[2019-06-20] MEDS: Multivitamin W/ Minerals 1 TAB PO SCH (09:50)
[2019-06-20] MEDS: Enoxaparin Sodium 40 MG/0.4 ML SYRINGE SC SCH (09:50)
[2019-06-20] MEDS: cefTRIAXone\\ROCEPHIN 1 GM in Sodium Chloride 0.9% 100 ML IVPB SCH (11:54)
--- NOTE | 2019-06-20 12:22 | PRG ---
DATE OF SERVICE: 06/20/2019 REASON FOR CONSULTATION: Transaminitis. SUBJECTIVE: Overnight, the patient did not have any acute events or problems. Today, she was able to tolerate her diet well without any difficulties as well, currently responding to diuretic management without difficulty. Currently, denies any nausea, vomiting, fevers, chills, hematemesis, melena, hematochezia, jaundice, or ascites. However, she did have some increased coughing last night, but was found to be influenza A positive and is currently doing better today. OBJECTIVE: VITAL SIGNS: Temperature 99.1, pulse 93, blood pressure 155/81, respiratory rate 18, saturating 96% on 2 L nasal cannula. GENERAL: The patient was lying in bed, in no acute distress. Alert and oriented x4. CARDIOVASCULAR: Regular rate and rhythm. RESPIRATORY: Coarse breath sounds with mild expiratory wheezing auscultated in the bilateral lower lung wadsworth. ABDOMEN: Normoactive bowel sounds. Soft, nontender, nondistended. EXTREMITIES: No cyanosis, clubbing, or edema. LABORATORY DATA: CBC with a white blood cell count of 16.4, hemoglobin 10.2, hematocrit 31.3, platelets 178. INR 1.8. Chemistry with a sodium of 136, potassium 4.3, chloride 100, CO2 of 28, BUN 36, creatinine 0.96, glucose 80, AST greater than 3500, ALT 3054, alkaline phosphatase 98, total bilirubin 1.2. Creatine kinase 7566. Immunoglobulin profile normal. IMAGING DATA: The patient underwent a repeat right upper quadrant ultrasound with Doppler this time on June 20, 2019, which showed patency and appropriate directional flow of the IVC, aorta, main portal vein, left portal vein, right portal vein, middle hepatic vein, right hepatic vein, and left hepatic vein with no evidence of thrombosis or Budd-Chiari. ASSESSMENT AND PLAN: The patient is a 59-year-old female with past medical history of hypertension, diabetes, peripheral vascular disease, congestive heart failure, chronic obstructive pulmonary disease, chronic lower back pain, tobacco abuse and alcohol abuse, presenting with profound transaminitis that is likely multifactorial in nature. Significant transaminitis/shock liver: The patient was initially admitted to the hospital with symptoms of increasing shortness of breath and dyspnea on exertion that was felt to be due to worsening of her congestive heart failure. However, on admission, she was noted to have profoundly elevated LFTs in a hepatocellular pattern with both AST and ALT greater than 3500. Further testing thus far has also revealed a significantly elevated creatine kinase of over 7500 that seems to be indicative of rhabdomyolysis, now while rhabdomyolysis can cause significant hepatic injury, we does not usually increase the AST to the extent seen in this particular patient making this probably not the sole diagnosis for transaminitis. Serological testing thus far has shown a normal immunoglobulin profile, making the likelihood of autoimmune hepatitis much less likely. She also has been negative for viral hepatitis, HIV, and syphilis. Iron indices were relatively normal except for an elevated ferritin at 1600, which is more likely due to acute phase reactant/process, and while she does have influenza A, extensive liver injury is not seen with seasonal influenza, but only rather pandemic influenza and not in this degree. At this time, I think the extent of her liver injury is multifactorial including a combination of congestive hepatopathy, significant alcohol abuse, vitamin deficiencies, rhabdomyolysis, and extensive use of NSAIDs when coupled with alcohol as an outpatient. RECOMMENDATIONS: 1. I will follow up on the remaining liver labs for possible underlying liver pathology. 2. Would repeat the administration of vitamin K for the elevated INR and probable vitamin K deficiency. 3. Continue to optimize cardiac function given higher likelihood of congestive hepatopathy. 4. Would avoid NSAIDs. 5. With the elevated creatine kinase and possible rhabdomyolysis (the patient is fairly sedentary as an outpatient), one could consider gentle IV fluid hydration coupled with diuretic management in light of her worsening congestive heart failure. We will continue to follow. Please call with any questions. Job ID: [id number]
[2019-06-20 12:29] LABS: HIV (1/2) Antibody/Antigen Non-Reactive (NonReactive); HIV 1/2 INDEX 0.08 S/CO (<1.00)
[2019-06-20 12:38] LABS: Band 11 % (5-11); Eosinophils 1 % (0-10); Hemoglobin 10.8 g/dL (12.0-16.0); Lymphocytes 8 % (21-51); MDiff Complete? YES; Mean Corpuscular HGB CONC 32.3 g/dL (32.0-36.0); Mean Corpuscular Hemoglobin 29.4 pg (27.0-31.0); Mean Corpuscular Volume 91.2 fL (78.0-98.0); Mean Platelet Volume 8.6 fL (7.4-10.4); Monocytes 2 % (0-10); Neutrophil 78 % (42-75); Platelet Count 199 thou/uL (130-400); RBC Distribution Width 14.7 % (11.5-14.5); RBC Morphology Normal; Red Blood Cell (RBC) Count 3.66 mill/uL (4.20-5.40)
[2019-06-20] MEDS: Nicotine 14 MG PATCH TD SCH (13:33)
[2019-06-20 15:35] LABS: Bilirubin Negative (Negative); Blood, Urine 1+ (Negative); Clarity Turbid (Clear); Glucose, Urine (Dipstick) Normal (Negative); Leukocyte Negative Leu/uL (Negative); Nitrite Negative (Negative); Protein, Urine (Dipstick) 30 mg/dL (Neg-Trace); Urobilinogen Normal mg/dL (Less than 2)
[2019-06-20 15:45] LABS: Bacteria/HPF Rare-Few HPF (None Seen)
[2019-06-20 15:46] LABS: Urine Culture Reflex No No
[2019-06-20] MEDS: Vancomycin HCl 1.75 GM in Sodium Chloride 0.9% 500 ML IVPB SCH (16:14)
[2019-06-20] MEDS: Azithromycin 250 MG TAB PO SCH (21:11)
[2019-06-21 05:47] LABS: #Lymphocytes 1.3 thou/uL (1.20-3.40); #Monocytes 0.6 thou/uL (0.11-0.59); #Neutrophils 10.2 thou/uL (1.40-6.50); %Basophils 0.2 % (0.0-1.0); %Eosinophils 0.1 % (0.0-10.0); %Lymphocytes 10.5 % (21.0-51.0); %Neutrophils 84.1 % (42.0-75.0); Hemoglobin 10.9 g/dL (12.0-16.0); Mean Corpuscular HGB CONC 32.5 g/dL (32.0-36.0); Mean Corpuscular Hemoglobin 30.4 pg (27.0-31.0); Mean Corpuscular Volume 93.6 fL (78.0-98.0); Mean Platelet Volume 8.7 fL (7.4-10.4); Platelet Count 199 thou/uL (130-400); RBC Distribution Width 14.5 % (11.5-14.5); Red Blood Cell (RBC) Count 3.57 mill/uL (4.20-5.40); White Blood Cell (WBC) Count 12.2 thou/uL (4.8-10.8)
[2019-06-21] MEDS ORDERED: Furosemide 40 MG/4 ML VIAL ONE (05:52)
[2019-06-21] MEDS ORDERED: Furosemide 40 MG TAB ONE (05:52)
[2019-06-21 06:05] LABS: INR-International Normal Ratio 1.4; PTT 29.2 SEC (22.9-36.1); Prothrombin Time 17.1 SEC (12.0-14.7)
[2019-06-21] MEDS: Furosemide 40 MG/4 ML VIAL SLOW IVP SCH ×2 (06:21→13:55)
--- NOTE | 2019-06-21 06:47 | PDOC.FM ---
- Subjective Subjective: pt resting comfortably in bed, not on o2. denies dyspnea/chest pain - Objective Vital Signs & Weight: Vital Signs (12 hours) Temp Pulse Resp BP BP Pulse Ox 06/21/19 00:38 70 16 96 06/21/19 00:00 99/55 L 06/20/19 23:45 78 99/55 L 06/20/19 22:14 71 16 97 06/20/19 20:00 97.9 F 79 20 98/53 L 98/53 L 97 06/20/19 18:48 78 16 Weight Admit Weight 92.164 kg Weight 88.723 kg I&O: 06/19/19 06/20/19 06/21/19 06:59 06:59 06:59 Intake Total 1440 1548 1514 Output Total 250 2500 2700 Balance 1190 -952 -1186 Result Diagrams: 06/21/19 04:22 06/21/19 08:07 Phys Exam - Physical Examination Constitutional: NAD HEENT: moist MMs Neck: no JVD Respiratory: wheezing present Cardiovascular: RRR, no significant murmur Gastrointestinal: non-tender, no distention Musculoskeletal: pulses present, edema present Neurological: moves all 4 limbs Psychiatric: normal affect Skin: no rash Dx/Plan (1) HTN (hypertension) Code(s): I10 - ESSENTIAL (PRIMARY) HYPERTENSION Status: Acute (2) PVD (peripheral vascular disease) Code(s): I73.9 - PERIPHERAL VASCULAR DISEASE, UNSPECIFIED Status: Acute (3) CHF exacerbation Code(s): I50.9 - HEART FAILURE, UNSPECIFIED Status: Suspected (4) COPD (chronic obstructive pulmonary disease) Status: Suspected - Plan Plan: HFrEF - cardiomegaly, pleural effusion, bnp/trop elevated on admission - Echo reveals 20% EF, valve abnormalities, cannot exclude endocarditis - cardiology consulted, appreciate recs - lasix, coreg, metolazone - cath/PRISCILLA planned possible endocarditis - febrile seen on TTE, vanc, rocephin began Transaminitis, improving - AST/ALT markedly elevated on admission - full panel workup negative thus far, US reveals GB wall edema COPD, suspected, in acute exacerbation - No formal diagnosis. 40-50pk year history - DuoNebs Scheduled. Prednisone 40 daily, azithro influenza A - tamiflu HTN - Continue home meds Alcohol use disorder - monitor Elevated troponin, downtrending - Likely 2/2 demand ischemia from CHF exacerbation DVT Ppx: Lovenox Code Status: Full dispo: continue diuresis and further workup Addendum - Attending - Attending Attestation Date/Time: 06/21/19 1100 I personally evaluated the patient and discussed the management with Dr. Gaming I agree with the History, Examination, Assessment and Plan documented above with any addition or exceptions noted below.Patient continues to improve good amout diuresis note metalazone. LFTs trending downward and appreciate GI consult and evaluation of causes. Family endorsing recent heavy alcohol consumption by the patient who currently denies recent drinking.
[2019-06-21] MEDS: Oseltamivir 75 MG CAP PO SCH ×2 (08:07→20:11)
[2019-06-21] MEDS: Thiamine 100 MG TAB PO SCH (08:07)
[2019-06-21] MEDS: Carvedilol 3.125 MG TAB PO SCH ×2 (08:07→16:06)
[2019-06-21] MEDS: Metolazone 2.5 MG TAB PO SCH (08:08)
[2019-06-21] MEDS: Losartan 25 MG TAB PO SCH (08:08)
[2019-06-21] MEDS: Magnesium Oxide 400 MG TAB PO SCH (08:08)
[2019-06-21] MEDS: Multivitamin W/ Minerals 1 TAB PO SCH (08:08)
[2019-06-21] MEDS: Folic Acid 1 MG TAB PO SCH (08:08)
[2019-06-21] MEDS: predniSONE 20 MG TAB PO SCH (08:09)
[2019-06-21] MEDS: Enoxaparin Sodium 40 MG/0.4 ML SYRINGE SC SCH (08:09)
[2019-06-21 08:46] LABS: ALT (SGPT) 2247 U/L (8-55); AST (SGOT) 1861 U/L (5-34); Albumin 3.4 g/dL (3.5-5.0); Alkaline Phosphatase 102 U/L (40-110); Anion Gap 15 mmol/L (10-20); BUN (Urea Nitrogen) 31 mg/dL (9.8-20.1); Bilirubin, Total 0.9 mg/dL (0.2-1.2); Calc. Creatinine Clearance 99 mL/min (70-130); Calcium 8.1 mg/dL (7.8-10.44); Carbon Dioxide 28 mmol/L (22-29); Chloride 99 mmol/L (98-107); Estimated GFR-MDRD 68; Globulin 2.9 g/dL (2.4-3.5); Glucose 83 mg/dL (70-105); Potassium 3.6 mmol/L (3.5-5.1); Protein, Total 6.3 g/dL (6.0-8.3); Sodium 138 mmol/L (136-145)
[2019-06-21 08:59] LABS: CK (CPK) 5497 U/L (29-168)
[2019-06-21] MEDS: cefTRIAXone\\ROCEPHIN 1 GM in Sodium Chloride 0.9% 100 ML IVPB SCH (09:09)
[2019-06-21 12:01] LABS: ANA Symphony (Qualitative) Negative (Negative); ANA Symphony (Quantitative) 0.2 Ratio (< 0.7 Negative); dsDNA IgG Antibody 0.6 IU/mL (<10 Negative)
[2019-06-21 12:10] LABS: EBV VCA IgM <36.0 U/mL (0.0-35.9)
[2019-06-21 12:13] LABS: EliA Vaculitis New Method **** NEW METHOD ****; Mitochondrial Ab 0.7 U/mL (<4 Negative)
[2019-06-21] MEDS: Nicotine 14 MG PATCH TD SCH (13:55)
[2019-06-21 16:12] LABS: Vancomycin, Trough 10.5 ug/mL
[2019-06-21] MEDS: Vancomycin HCl 1.75 GM in Sodium Chloride 0.9% 500 ML IVPB SCH (16:25)
[2019-06-21] MEDS: Vancomycin HCl 1 GM in Premix Bag 1 BAG IVPB SCH (16:29)
--- NOTE | 2019-06-21 19:11 | PRG ---
DATE OF SERVICE: 06/21/2019 REASON FOR CONSULTATION: Transaminitis. SUBJECTIVE: The patient did not have any acute events or problems overnight. Today, she was able to tolerate a solid diet without any difficulties. She has been urinating quite a bit with the institution of diuretic management per Cardiology Service. Currently, denies any nausea, vomiting, fevers, chills, hematemesis, melena, hematochezia, jaundice, or ascites. She does continue to have some coughing, but states it is mildly improved when compared to yesterday. OBJECTIVE: VITAL SIGNS: Temperature 97.9, pulse 77, blood pressure 106/55, respiratory rate 18, saturating 94% on room air. GENERAL: The patient was lying in bed, in no acute distress. Alert and oriented x4. CARDIOVASCULAR: Regular rate and rhythm. RESPIRATORY: Mild coarse breath sounds auscultated in the bilateral lower lung wadsworth. ABDOMEN: Normoactive bowel sounds. Soft, nontender, and nondistended. EXTREMITIES: No cyanosis, clubbing, or edema. LABORATORY DATA: CBC with a white blood cell count of 12.2, hemoglobin 10.9, hematocrit 33.4, platelets 199. INR 1.4. Chemistry with a sodium of 138, potassium 3.6, chloride 99, CO2 of 28, BUN 31, creatinine 0.86, glucose 83. AST 1861, ALT 2247, alkaline phosphatase 102, total bilirubin 0.9. Creatine kinase 5497. Alpha-1 antitrypsin 236. Ceruloplasmin 41.9. Immunoglobulin profile normal. MIGUEL A profile normal. Antimitochondrial antibody normal at 0.7. Smooth muscle antibody titer normal at 7. EBV titers indicative of prior infection. CMV titer still pending. Viral hepatitis negative. HIV negative. Syphilis negative. IMAGING DATA: Echocardiogram was performed on June 19, 2019, which showed an ejection fraction visually estimated at 20% to 25%. Left ventricular size was mildly increased with hypokinesis of the lateral septal and the inferior fitzpatrick of the left ventricle. Grade 2 diastolic dysfunction was noted with [id number] dilated left atrium. Severe mitral regurgitation was present. [id number] tricuspid regurgitation present and moderately elevated pulmonary artery pressures. ASSESSMENT AND PLAN: The patient is a 59-year-old female with past medical history of hypertension, diabetes, peripheral vascular disease, congestive heart failure, chronic obstructive pulmonary disease, chronic lower back pain, tobacco abuse, and alcohol abuse, presenting with transaminitis that is likely multifactorial in nature. Significant transaminitis/shock liver: The patient initially presented with complaints of increasing shortness of breath and dyspnea on exertion, felt to be due to worsening congestive heart failure; however, on admission, she was noted to have profoundly elevated LFTs in a hepatocellular pattern with both AST and ALT greater than 3500. Further testing thus far has been negative for autoimmune hepatitis, viral hepatitis, alpha-1 antitrypsin deficiency, Rusyt disease, hemochromatosis, Anahi Weiner virus, or syphilis; however, given her significantly decreased ejection fraction, significant prior alcohol history, use of herbal supplements and NSAIDs as an outpatient, and concurrent diagnosis of rhabdomyolysis, all of these could contribute to potential hepatic injury. At this time, the extent of her liver injury is most likely multifactorial due to the above rather than underlying liver disease. 1. We would continue to optimize her cardiac function given the higher likelihood of congestive hepatopathy, that is responding to diuretic management. 2. We would avoid any NSAIDs or hepatotoxins. 3. Continue with current treatment of her rhabdomyolysis. 4. Strongly encourage alcohol cessation. We will follow peripherally for now given negative underlying liver pathology thus far. I expect her liver enzymes to decrease with optimization of her cardiac status. Please call with any questions. Job ID: [id number]
[2019-06-21] MEDS: Azithromycin 250 MG TAB PO SCH (20:11)
[2019-06-22 04:34] LABS: #Basophils 0.1 thou/uL (0.0-0.2); #Lymphocytes 1.4 thou/uL (1.20-3.40); #Monocytes 0.8 thou/uL (0.11-0.59); #Neutrophils 5.6 thou/uL (1.40-6.50); %Basophils 1.2 % (0.0-1.0); %Eosinophils 0.2 % (0.0-10.0); %Lymphocytes 17.3 % (21.0-51.0); %Monocytes 9.5 % (0.0-10.0); %Neutrophils 71.7 % (42.0-75.0); Hemoglobin 11.4 g/dL (12.0-16.0); Mean Corpuscular HGB CONC 33.7 g/dL (32.0-36.0); Mean Corpuscular Hemoglobin 30.7 pg (27.0-31.0); Mean Corpuscular Volume 91.1 fL (78.0-98.0); Mean Platelet Volume 8.1 fL (7.4-10.4); Platelet Count 219 thou/uL (130-400); RBC Distribution Width 14.5 % (11.5-14.5); White Blood Cell (WBC) Count 7.9 thou/uL (4.8-10.8)
[2019-06-22 04:35] LABS: INR-International Normal Ratio 1.2; PTT 26.2 SEC (22.9-36.1); Prothrombin Time 14.7 SEC (12.0-14.7)
[2019-06-22 04:55] LABS: ALT (SGPT) 1598 U/L (8-55); AST (SGOT) 887 U/L (5-34); Albumin 3.1 g/dL (3.5-5.0); Alkaline Phosphatase 96 U/L (40-110); Anion Gap 14 mmol/L (10-20); BUN (Urea Nitrogen) 30 mg/dL (9.8-20.1); Bilirubin, Total 0.8 mg/dL (0.2-1.2); CK (CPK) 2014 U/L (29-168); Calc. Creatinine Clearance 103 mL/min (70-130); Calcium 8.3 mg/dL (7.8-10.44); Carbon Dioxide 32 mmol/L (22-29); Chloride 95 mmol/L (98-107); Estimated GFR-MDRD 71; Glucose 90 mg/dL (70-105); Potassium 3.5 mmol/L (3.5-5.1); Protein, Total 6.1 g/dL (6.0-8.3); Sodium 137 mmol/L (136-145)
[2019-06-22] MEDS: Vancomycin HCl 1 GM in Premix Bag 1 BAG IVPB SCH ×2 (05:11→17:04)
[2019-06-22] MEDS: Furosemide 40 MG/4 ML VIAL SLOW IVP SCH ×2 (05:12→14:14)
[2019-06-22] MEDS: Benzonatate 100 MG CAP PO PRN ×2 (05:25→21:47)
--- NOTE | 2019-06-22 06:51 | PDOC.FM ---
- Subjective Subjective: pt resting comfortably in bed, denies chest pain, sob improved - Objective Vital Signs & Weight: Vital Signs (12 hours) Temp Pulse Resp BP BP Pulse Ox 06/22/19 04:00 111/66 06/22/19 03:29 98.3 F 76 18 111/66 92 L 06/22/19 01:42 97 06/22/19 00:00 82 20 06/21/19 22:07 71 16 96 06/21/19 20:00 98.5 F 83 20 99/54 L 99/54 L 94 L Weight Admit Weight 92.164 kg Weight 86.818 kg I&O: 06/20/19 06/21/19 06/22/19 06:59 06:59 06:59 Intake Total 1548 1514 1790 Output Total 9922 7557 4122 Balance -952 -1186 -2910 Result Diagrams: 06/22/19 04:17 06/22/19 04:17 Phys Exam - Physical Examination Constitutional: NAD HEENT: moist MMs Neck: no JVD Respiratory: clear to auscultation bilateral Cardiovascular: RRR Gastrointestinal: non-tender Musculoskeletal: pulses present, edema present Neurological: moves all 4 limbs Lymphatic: no nodes Psychiatric: normal affect Skin: no rash Dx/Plan (1) HTN (hypertension) Code(s): I10 - ESSENTIAL (PRIMARY) HYPERTENSION Status: Acute (2) PVD (peripheral vascular disease) Code(s): I73.9 - PERIPHERAL VASCULAR DISEASE, UNSPECIFIED Status: Acute (3) CHF exacerbation Code(s): I50.9 - HEART FAILURE, UNSPECIFIED Status: Suspected (4) COPD (chronic obstructive pulmonary disease) Status: Suspected - Plan Plan: HFrEF - cardiomegaly, pleural effusion, bnp/trop elevated on admission - Echo reveals 20% EF, valve abnormalities, cannot exclude endocarditis - cardiology consulted, appreciate recs - lasix, coreg, metolazone - cath/PRISCILLA planned possible endocarditis - febrile seen on TTE, vanc, rocephin Transaminitis, improving - AST/ALT markedly elevated on admission - full panel workup negative thus far, US reveals GB wall edema COPD, suspected, in acute exacerbation - No formal diagnosis. 40-50pk year history - DuoNebs Scheduled. Prednisone 40 daily, azithro influenza A - tamiflu HTN - Continue home meds Alcohol use disorder - monitor Elevated troponin, downtrending - Likely 2/2 demand ischemia from CHF exacerbation DVT Ppx: Lovenox Code Status: Full dispo: continue to anuradha PRISCILLA/LHC pending Addendum - Attending - Attending Attestation Date/Time: 06/22/191838 I personally evaluated the patient and discussed the management with Dr. Gaming I agree with the History, Examination, Assessment and Plan documented above with any addition or exceptions noted below.
[2019-06-22 07:13] LABS: CMV IgG AB Greater than 10.00 U/mL (0.00-0.59)
--- NOTE | 2019-06-22 08:49 | CON ---
DATE OF CONSULTATION: 06/22/2019 HISTORY OF PRESENT ILLNESS: Ms. Real seems to be doing better, but continues to have shortness of breath. She states she is not able to lie flat. She continues to diurese. Her AST and ALT continues to decline. PHYSICAL EXAMINATION: GENERAL: Patient is a pleasant female, who is in no acute distress. The patient appears their stated age. VITAL SIGNS: Blood pressure 110/62, pulse 75, and temperature 97.8. NEUROLOGIC: The patient is alert and oriented x3 with no focal neurologic deficits. HEENT: Sclerae without icterus. Mouth has moist mucous membranes with normal pallor. NECK: No JVD. Carotid upstroke brisk. No bruits bilaterally. LUNGS: Decreased breath sounds and crackles noted bilaterally. BACK: No scoliosis or kyphosis. CARDIAC: Regular rate and rhythm with normal S1 and S2. No S3 or S4 noted. No significant rubs, murmurs, thrills, or gallops noted throughout the precordium. PMI is not displaced. There is no parasternal heave. ABDOMEN: Soft, nontender, nondistended. No peritoneal signs present. No hepatosplenomegaly. No abnormal striae. EXTREMITIES: 2+ femoral and 2+ dorsalis pedis pulses. No cyanosis, clubbing, or edema. SKIN: No gross abnormalities. PERTINENT LABORATORY DATA: Hemoglobin 11.4, hematocrit 33.7, and platelet count of 219. Creatinine of 0.82. AST decreased from greater than 3500 to 887, ALT 3054 down to 1528. CK 5497 down to 2014. IMPRESSION: 1. New-onset cardiomyopathy. 2. Rhabdomyolysis. 3. Elevated AST and ALT. RECOMMENDATIONS: The plan was to proceed with coronary angiography today. She does not have a very good radial pulse on right. This would have to be done through the femoral artery. Given that she is not able to lie flat, we will continue diuresis until she is able to comfortably lie flat for the procedure. I would like to assess for underlying coronary artery disease given risk factors. She is currently to metolazone in addition to Lasix. Continue carvedilol in addition to losartan. Add low-dose aspirin. The patient also currently on vancomycin. Blood culture so far have been negative. It is unlikely she has endocarditis given no significant murmur. Negative blood cultures. She likely has a spicule on the posterior mitral valve. We will consider PRISCILLA prior to discharge. Job ID: [id number]
[2019-06-22] MEDS: Metolazone 2.5 MG TAB PO SCH (08:54)
[2019-06-22] MEDS: Multivitamin W/ Minerals 1 TAB PO SCH (08:54)
[2019-06-22] MEDS: Folic Acid 1 MG TAB PO SCH (08:54)
[2019-06-22] MEDS: predniSONE 20 MG TAB PO SCH (08:55)
[2019-06-22] MEDS: Magnesium Oxide 400 MG TAB PO SCH (08:55)
[2019-06-22] MEDS: Losartan 25 MG TAB PO SCH (08:55)
[2019-06-22] MEDS: Carvedilol 3.125 MG TAB PO SCH ×2 (08:55→17:04)
[2019-06-22] MEDS: Oseltamivir 75 MG CAP PO SCH ×2 (08:55→21:48)
[2019-06-22] MEDS: Thiamine 100 MG TAB PO SCH (08:55)
[2019-06-22] MEDS: Enoxaparin Sodium 40 MG/0.4 ML SYRINGE SC SCH (10:50)
[2019-06-22] MEDS: cefTRIAXone\\ROCEPHIN 1 GM in Sodium Chloride 0.9% 100 ML IVPB SCH (10:50)
[2019-06-22] MEDS: Nicotine 14 MG PATCH TD SCH (14:14)
[2019-06-22] MEDS: Azithromycin 250 MG TAB PO SCH (21:48)
[2019-06-23 04:37] LABS: INR-International Normal Ratio 1.1; Prothrombin Time 14.6 SEC (12.0-14.7)
[2019-06-23 04:38] LABS: PTT 26.9 SEC (22.9-36.1)
[2019-06-23 04:53] LABS: Band 3 % (5-11); Hemoglobin 12.2 g/dL (12.0-16.0); Lymphocytes 20 % (21-51); MDiff Complete? YES; Mean Corpuscular HGB CONC 32.1 g/dL (32.0-36.0); Mean Corpuscular Hemoglobin 29.3 pg (27.0-31.0); Mean Corpuscular Volume 91.4 fL (78.0-98.0); Mean Platelet Volume 8.3 fL (7.4-10.4); Monocytes 8 % (0-10); Neutrophil 69 % (42-75); Platelet Count 227 thou/uL (130-400); Platelet Morphology Comment Appears Adequate; RBC Distribution Width 14.6 % (11.5-14.5); Red Blood Cell (RBC) Count 4.16 mill/uL (4.20-5.40); Vancomycin, Trough 17.8 ug/mL; White Blood Cell (WBC) Count 6.3 thou/uL (4.8-10.8)
[2019-06-23 04:55] LABS: ALT (SGPT) 1155 U/L (8-55); AST (SGOT) 410 U/L (5-34); Albumin 3.3 g/dL (3.5-5.0); Alkaline Phosphatase 100 U/L (40-110); Anion Gap 11 mmol/L (10-20); BUN (Urea Nitrogen) 29 mg/dL (9.8-20.1); Bilirubin, Total 0.9 mg/dL (0.2-1.2); Calc. Creatinine Clearance 102 mL/min (70-130); Calcium 8.4 mg/dL (7.8-10.44); Carbon Dioxide 37 mmol/L (22-29); Chloride 91 mmol/L (98-107); Estimated GFR-MDRD 72; Globulin 3.1 g/dL (2.4-3.5); Glucose 96 mg/dL (70-105); Potassium 3.1 mmol/L (3.5-5.1); Protein, Total 6.4 g/dL (6.0-8.3); Sodium 136 mmol/L (136-145)
[2019-06-23] MEDS: Vancomycin HCl 1 GM in Premix Bag 1 BAG IVPB SCH ×2 (05:47→17:07)
[2019-06-23] MEDS: Furosemide 40 MG/4 ML VIAL SLOW IVP SCH ×2 (05:48→13:14)
[2019-06-23] MEDS: Benzonatate 100 MG CAP PO PRN (05:57)
--- NOTE | 2019-06-23 06:53 | PDOC.FM ---
- Subjective Subjective: pt resting in bed, not on O2. reports cough and an episode of difficulty breathing overnight. - Objective Vital Signs & Weight: Vital Signs (12 hours) Temp Pulse Resp BP BP Pulse Ox 06/23/19 05:45 98.2 F 77 18 110/57 L 94 L 06/22/19 21:52 75 16 95 06/22/19 21:44 77 18 106/56 L 95 Weight Admit Weight 92.164 kg Weight 86.046 kg I&O: 06/21/19 06/22/19 06/23/19 06:59 06:59 06:59 Intake Total 1514 1790 1420 Output Total 2700 4700 6910 Balance -1691 -5714 -6011 Result Diagrams: 06/23/19 04:09 06/23/19 04:09 Phys Exam - Physical Examination Constitutional: NAD HEENT: moist MMs Neck: no JVD Respiratory: no wheezing mild rhonchi Cardiovascular: no significant murmur Gastrointestinal: no distention Musculoskeletal: pulses present Neurological: moves all 4 limbs Psychiatric: normal affect Skin: no rash Dx/Plan (1) HTN (hypertension) Code(s): I10 - ESSENTIAL (PRIMARY) HYPERTENSION Status: Acute (2) PVD (peripheral vascular disease) Code(s): I73.9 - PERIPHERAL VASCULAR DISEASE, UNSPECIFIED Status: Acute (3) CHF exacerbation Code(s): I50.9 - HEART FAILURE, UNSPECIFIED Status: Suspected (4) COPD (chronic obstructive pulmonary disease) Status: Suspected - Plan Plan: HFrEF - cardiomegaly, pleural effusion, bnp/trop elevated on admission - Echo reveals 20% EF, valve abnormalities, cannot exclude endocarditis - cardiology consulted, appreciate recs - lasix, coreg, metolazone - cath when able to lie flat possible endocarditis - febrile seen on TTE, vanc, rocephin - consider PRISCILLA Transaminitis, improving - AST/ALT markedly elevated on admission - full panel workup negative thus far, US reveals GB wall edema COPD, suspected, in acute exacerbation - No formal diagnosis. 40-50pk year history - DuoNebs Scheduled. Prednisone 40 daily, azithro influenza A - tamiflu HTN - Continue home meds Alcohol use disorder - monitor Elevated troponin, downtrending - Likely 2/2 demand ischemia from CHF exacerbation DVT Ppx: Lovenox Code Status: Full dispo: continue to diurese, Justin pending Addendum - Attending - Attending Attestation Date/Time: 06/23/19 2474 I personally evaluated the patient and discussed the management with Dr. Gaming I agree with the History, Examination, Assessment and Plan documented above with any addition or exceptions noted below. Patient appear adequately diuresed for heart cath later today appreciate Cardiology recommendations. Continue to advocate for patient and alcohol cessation.
--- NOTE | 2019-06-23 06:57 | PRG ---
DATE OF SERVICE: 06/21/2019 SUBJECTIVE: Ms. Real is resting comfortably. There has been no overnight events. She continues to put out fluid. Her daughter is here and confirms that she is feeling better overall. She is afebrile. PHYSICAL EXAMINATION: GENERAL: A pleasant, middle-aged female, in no acute distress. She is lying in bed, resting comfortably. VITAL SIGNS: Stable. NEUROLOGIC: She is alert and oriented. CHEST: Clear bilaterally. CARDIOVASCULAR: Regular rate and rhythm. ABDOMEN: Soft. EXTREMITIES: Showed no clubbing or cyanosis. She does have +2 pitting edema to her lower extremities. IMPRESSION: 1. Acute systolic congestive heart failure of unknown etiology. 2. Influenza A. 3. Probable chronic obstructive pulmonary disease. 4. Significantly elevated liver enzymes with coagulopathy. At this time, overall, she has improved. We will continue to wait until her liver enzymes trends down. Her INR is stabilizing. I discussed the care at length with her daughter. The plan will be eventually for probable angio and consideration of PRISCILLA to rule out endocarditis when she is more stable. Her blood pressure did drop this morning after her Coreg was increased. I will go ahead and take that back down to 3.125 b.i.d. Otherwise, we will continue to monitor closely. Job ID: [id number]
[2019-06-23] MEDS ORDERED: Potassium Chloride 20 MEQ TAB PO SCH (07:00)
[2019-06-23] MEDS: Enoxaparin Sodium 40 MG/0.4 ML SYRINGE SC SCH ×2 (09:58→10:07)
[2019-06-23] MEDS: Folic Acid 1 MG TAB PO SCH (09:59)
[2019-06-23] MEDS: Magnesium Oxide 400 MG TAB PO SCH (09:59)
[2019-06-23] MEDS: predniSONE 20 MG TAB PO SCH (09:59)
[2019-06-23] MEDS: Thiamine 100 MG TAB PO SCH (09:59)
[2019-06-23] MEDS: Multivitamin W/ Minerals 1 TAB PO SCH (09:59)
[2019-06-23] MEDS: Oseltamivir 75 MG CAP PO SCH ×2 (10:00→20:14)
[2019-06-23] MEDS: Losartan 25 MG TAB PO SCH (10:04)
[2019-06-23] MEDS: Metolazone 2.5 MG TAB PO SCH (10:05)
[2019-06-23] MEDS: Carvedilol 3.125 MG TAB PO SCH ×2 (10:06→17:07)
[2019-06-23] MEDS: cefTRIAXone\\ROCEPHIN 1 GM in Sodium Chloride 0.9% 100 ML IVPB SCH (10:15)
[2019-06-23] MEDS ORDERED: Sodium Chloride 0.9% 250 ML 250 ML IVPB SCH (10:30)
[2019-06-23] MEDS: Nicotine 14 MG PATCH TD SCH (13:14)
--- NOTE | 2019-06-23 14:40 | PRG ---
DATE OF SERVICE: SUBJECTIVE: Ms. Real is currently doing much better. She has less shortness of breath. She continues to diurese. She is currently on Zaroxolyn in addition to Lasix. Her blood pressure did decrease and was given IV fluids with improvement in blood pressure. OBJECTIVE: VITAL SIGNS: Blood pressure 102/64, pulse 70, temperature 98.2. LUNGS: Crackles noted bilaterally, but improved. IMPRESSION: 1. New onset cardiomyopathy. 2. ?endocarditis. 3. Tobacco abuse. 4. Elevated AST, ALT. RECOMMENDATIONS: Plan to proceed with coronary angiography in a.m. I discussed procedure in full detail with Ms. Real. Risks included not limited to the following: I discussed the procedure in full detail with the patient. The risks of the procedure were also discussed. The risks of the procedure include but are not limited to the following: , stroke, UT, need for emergency surgery, loss of limb, bleeding, and infection, as well as a reaction to the dye causing kidney failure and needing long-term dialysis. I also discussed the risks of PCI to include all of the above including coronary dissection and perforation in addition to acute stent thrombosis and restenosis. All questions about the procedure were answered. Given the above, the patient agreed to proceed with coronary angiography and possible PCI. All questions were answered. Given the above, the patient agreed to proceed with above procedure. I will proceed with a bare-metal stent if needed. Her blood culture has been negative. Chances of this being endocarditis are much lower. May consider PRISCILLA prior to discharge. Job ID: [id number]
[2019-06-23] MEDS ORDERED: Communication Order-Pharmacy FS SCH (17:30)
[2019-06-23] MEDS: Azithromycin 250 MG TAB PO SCH (20:14)
[2019-06-24 05:08] LABS: INR-International Normal Ratio 1.1; PTT 26.5 SEC (22.9-36.1); Prothrombin Time 13.8 SEC (12.0-14.7)
[2019-06-24 05:32] LABS: ALT (SGPT) 841 U/L (8-55); AST (SGOT) 210 U/L (5-34); Albumin 3.5 g/dL (3.5-5.0); Alkaline Phosphatase 96 U/L (40-110); Anion Gap 14 mmol/L (10-20); BUN (Urea Nitrogen) 32 mg/dL (9.8-20.1); Bilirubin, Total 1.1 mg/dL (0.2-1.2); Calc. Creatinine Clearance 98 mL/min (70-130); Calcium 8.6 mg/dL (7.8-10.44); Carbon Dioxide 35 mmol/L (22-29); Chloride 90 mmol/L (98-107); Estimated GFR-MDRD 69; Globulin 3.3 g/dL (2.4-3.5); Glucose 94 mg/dL (70-105); Potassium 3.1 mmol/L (3.5-5.1); Protein, Total 6.8 g/dL (6.0-8.3); Sodium 136 mmol/L (136-145)
[2019-06-24] MEDS: Vancomycin HCl 1 GM in Premix Bag 1 BAG IVPB SCH ×2 (06:08→18:14)
[2019-06-24] MEDS: Folic Acid 1 MG TAB PO SCH (06:09)
[2019-06-24] MEDS: Magnesium Oxide 400 MG TAB PO SCH (06:09)
[2019-06-24] MEDS: Thiamine 100 MG TAB PO SCH (06:10)
[2019-06-24] MEDS: Multivitamin W/ Minerals 1 TAB PO SCH (06:10)
[2019-06-24] MEDS: predniSONE 20 MG TAB PO SCH (06:11)
[2019-06-24] MEDS: Oseltamivir 75 MG CAP PO SCH (06:11)
[2019-06-24] MEDS: Potassium Chloride 20 MEQ TAB PO SCH (06:11)
[2019-06-24] MEDS: Carvedilol 3.125 MG TAB PO SCH ×2 (06:12→18:09)
[2019-06-24] MEDS: Furosemide 40 MG/4 ML VIAL SLOW IVP SCH ×2 (06:28→16:18)
[2019-06-24] MEDS: Metolazone 2.5 MG TAB PO SCH (06:29)
[2019-06-24] MEDS: Losartan 25 MG TAB PO SCH (06:29)
[2019-06-24] MEDS ORDERED: Heparin (Artline) 1,000 ML ONE (06:31)
[2019-06-24] MEDS ORDERED: Lidocaine 1% (PF) 30 ML VIAL ONE (06:31)
[2019-06-24 06:33] LABS: Band 4 % (5-11); Eosinophils 1 % (0-10); Hemoglobin 13.1 g/dL (12.0-16.0); Lymphocytes 21 % (21-51); MDiff Complete? YES; Mean Corpuscular HGB CONC 32.4 g/dL (32.0-36.0); Mean Corpuscular Hemoglobin 29.4 pg (27.0-31.0); Mean Corpuscular Volume 90.7 fL (78.0-98.0); Mean Platelet Volume 8.5 fL (7.4-10.4); Monocytes 14 % (0-10); Neutrophil 59 % (42-75); Platelet Count 207 thou/uL (130-400); Red Blood Cell (RBC) Count 4.45 mill/uL (4.20-5.40); White Blood Cell (WBC) Count 7.7 thou/uL (4.8-10.8)
[2019-06-24] MEDS: Sodium Chloride 0.9% 1,000 ML IV SCH ×3 (07:28→17:16)
[2019-06-24] MEDS ORDERED: Verapamil 5 MG/2 ML VIAL ONE (07:41)
[2019-06-24] MEDS ORDERED: Heparin 10,000 UNITS/1 ML VIAL ONE (07:41)
[2019-06-24] MEDS ORDERED: Nitroglycerin 100MG/250ML BOT 250 ML ONE (07:42)
[2019-06-24] MEDS ORDERED: Sodium Chloride 0.9% 200 ML IV PRN (08:05)
[2019-06-24] MEDS ORDERED: Nitroglycerin 0.4 MG TAB (25 Tab Bottle) SL PRN (08:05)
[2019-06-24] MEDS ORDERED: Acetaminophen/Codeine 30-300mg Tablet PO PRN ×2 (08:05)
--- NOTE | 2019-06-24 08:12 | PDOC.FM ---
- Subjective Subjective: pt back from [facility] this am. denies cp/sob - Objective Vital Signs & Weight: Vital Signs (12 hours) Temp Pulse Resp BP BP Pulse Ox 06/24/19 04:00 98/59 L 06/24/19 03:41 97.5 F L 77 14 98/59 L 92 L 06/24/19 00:00 105/51 L 06/23/19 23:22 105/51 L 06/23/19 22:42 81 16 94 L Weight Admit Weight 92.164 kg Weight 86.046 kg I&O: 06/23/19 06/24/19 06/25/19 06:59 06:59 06:59 Intake Total 1420 1020 Output Total 4500 3000 Balance -3079 Result Diagrams: 06/24/19 04:38 06/24/19 04:38 Phys Exam - Physical Examination Constitutional: NAD HEENT: moist MMs Respiratory: clear to auscultation bilateral Cardiovascular: RRR, no significant murmur Gastrointestinal: no distention Musculoskeletal: no edema, pulses present Neurological: moves all 4 limbs Psychiatric: normal affect Skin: no rash Dx/Plan (1) HTN (hypertension) Code(s): I10 - ESSENTIAL (PRIMARY) HYPERTENSION Status: Acute (2) PVD (peripheral vascular disease) Code(s): I73.9 - PERIPHERAL VASCULAR DISEASE, UNSPECIFIED Status: Acute (3) CHF exacerbation Code(s): I50.9 - HEART FAILURE, UNSPECIFIED Status: Suspected (4) COPD (chronic obstructive pulmonary disease) Status: Suspected - Plan Plan: HFrEF - cardiomegaly, pleural effusion, bnp/trop elevated on admission - Echo reveals 20% EF, valve abnormalities, cannot exclude endocarditis - cardiology consulted, appreciate recs - lasix, coreg, metolazone - [facility] reveals severe multi-vessel disease not amenable to stenting. CV surg contacted - life vest ordered possible endocarditis - febrile seen on TTE, vanc, rocephin - consider PRISCILLA Transaminitis, improving - AST/ALT markedly elevated on admission - full panel workup negative thus far, US reveals GB wall edema COPD exacerbation - No formal diagnosis. 40-50pk year history - resolved influenza A - tamiflu HTN - Continue home meds Alcohol use disorder - monitor Elevated troponin, downtrending - Likely 2/2 demand ischemia from CHF exacerbation DVT Ppx: Lovenox Code Status: Full dispo: slow down diuresis 2/2 LBP, therapy planning Addendum - Attending - Attending Attestation Date/Time: 06/24/19 8780 I personally evaluated the patient and discussed the management with Dr. Gaming I agree with the History, Examination, Assessment and Plan documented above with any addition or exceptions noted below. Heart catherization with severe triple vessel disease and mitral valve disease await opinion from CV Surgery. Adjusting RX expectant management life vest ordered.
[2019-06-24] MEDS: cefTRIAXone\\ROCEPHIN 1 GM in Sodium Chloride 0.9% 100 ML IVPB SCH (10:50)
[2019-06-24] MEDS ORDERED: Iopamidol 370 76% 100 ML VIAL ONE (12:14)
--- NOTE | 2019-06-24 13:27 | PRG ---
DATE OF SERVICE: Ms. Real recently underwent coronary angiography. She had complete occlusion of the bilateral iliacs. Access could not be obtained in the right radial due to no pulse. Access is in the left radial artery. She does have severe multivessel disease with severe disease of the right coronary artery with collaterals in the circumflex artery. She also has severe disease of the circumflex and into the OM branch. Ms. Real previously stated she would proceed with a bare-metal stent if needed. I have concerns about the amount of stent that would be required (long and small) for the area with high chance of restenoses. She also has stenosis of the ostium of the diagonal branch. Fortunately, her LAD is free of significant disease. She also has severe mitral regurgitation with low LVEF. I discussed the case with Dr. Rudy Patel, who is consulted on the case. If she is felt to be at high risk, we would consider PCI to the right coronary artery and circumflex artery, although I have my doubts about the long-term patency versus medical therapy versus transfer to [facility] for further recommendations. Of course, the stent implantation would unlikely improve her mitral valve. She will also need a PRISCILLA on Thursday. She does have an area on the mitral leaflet concerning for vegetation, although likely related to calcium. I discussed the procedure in full detail with both the patient and family. Risks include, but not limited to the following: Damage to teeth, mouth, back of throat, damage to esophagus requiring emergency surgery. This will be performed by Dr. Hieu Sorto on Thursday. I will be out of the office. I also discussed ZOLL with the patient. We will order ZOLL LifeVest for the patient. Job ID: [id number]
[2019-06-24] MEDS: Nicotine 14 MG PATCH TD SCH (15:26)
[2019-06-24 16:31] LABS: Vancomycin, Trough 19.5 ug/mL
--- NOTE | 2019-06-24 20:49 | CON ---
DATE OF CONSULTATION: HISTORY OF PRESENT ILLNESS: This is a 59-year-old female who was admitted with a 1-week history of significant swelling in her lower extremities, dyspnea and a cough. She called [facility] and was brought by ambulance to the hospital on 06/18. PAST MEDICAL HISTORY: Includes untreated hypertension, untreated dyslipidemia, chronic smoking history. PAST SURGICAL HISTORY: Includes left femoral, attempted embolectomy and then followed by bilateral common iliac artery stents. SOCIAL HISTORY: She smokes a half to one pack of cigarettes a day for her entire adult life. She drinks a bottle of wine every 1-2 days. She was living alone. CURRENT MEDICATIONS: Since admission her current medications include: 1. Coreg 3.125 b.i.d. 2. Lasix 40 IV b.i.d. 3. Losartan 25 daily. 4. Magnesium oxide 400 daily. 5. Zaroxolyn 2.5 q.a.m. 6. Nicotine patch. 7. Thiamine. 8. She is also on antibiotics. ALLERGIES: SHE IS ALLERGIC TO TRAMADOL. PHYSICAL EXAMINATION: VITAL SIGNS: She is alert, cooperative lady, 5 foot 4 inches, 189 pounds compared to 212 about a week prior to admission. NECK: No carotid bruits. Oral exam, poor dentition, missing teeth. LUNGS: Clear to auscultation anteriorly. No wheezes. CARDIAC: Soft systolic murmur in left lower sternal border. ABDOMEN: Obese. EXTREMITIES: No current edema. No palpable femoral or pedal pulses. She has a dressing on her left wrist and I do not palpate a right radial pulse. IMAGING: Her chest x-ray on admission showed bilateral pleural effusions. Cardiac catheterization showed relatively normal LAD with about an 80% ostial diagonal lesion. There was no other major obtuse marginal branch until distally. There was an obtuse marginal with distal disease with a long 70-80 percent lesion. Right coronary artery was subtotally occluded in 2 areas and filled from right and left-sided collaterals. Cardiac echo at least moderate mitral regurgitation with an ejection fraction of 20% to 25%, global hypokinesis. Mitral regurgitation jet appeared central on one view and posteriorly directed on another view. ASSESSMENT AND PLAN: At this time, I think the patient presents a prohibitive risk for surgical intervention given her poor ejection fraction with moderate mitral regurgitation. Her coronary stenting could be considered for the circumflex lesion, which collateralizes the right coronary system. The right coronary could be dilated, but since it is already collateralized, that would be an optional approach. She needs vigorous medical management and hopes that her ejection fraction will improve and her mitral regurgitation may improve as well with control of her blood pressure and improvement in ejection fraction. I have discussed all this with 3 family members and the patient and emphasized the need for compliance and smoking cessation. I have also discussed salt restriction since she has a bag of potato chips sitting on her bedside table. Prognosis given her past history of noncompliance is poor. Job ID: [id number]
[2019-06-25 04:31] LABS: #Eosinphils 0.1 thou/uL (0.0-0.7); #Lymphocytes 2.1 thou/uL (1.20-3.40); #Monocytes 0.9 thou/uL (0.11-0.59); #Neutrophils 4.5 thou/uL (1.40-6.50); %Basophils 0.4 % (0.0-1.0); %Eosinophils 1.1 % (0.0-10.0); %Lymphocytes 27.9 % (21.0-51.0); %Monocytes 11.5 % (0.0-10.0); Hemoglobin 12.7 g/dL (12.0-16.0); Mean Corpuscular HGB CONC 33.3 g/dL (32.0-36.0); Mean Corpuscular Hemoglobin 30.1 pg (27.0-31.0); Mean Corpuscular Volume 90.5 fL (78.0-98.0); Mean Platelet Volume 8.8 fL (7.4-10.4); Platelet Count 171 thou/uL (130-400); RBC Distribution Width 15.1 % (11.5-14.5); Red Blood Cell (RBC) Count 4.23 mill/uL (4.20-5.40); White Blood Cell (WBC) Count 7.7 thou/uL (4.8-10.8)
[2019-06-25 04:33] LABS: INR-International Normal Ratio 1.1; PTT 26.2 SEC (22.9-36.1); Prothrombin Time 13.8 SEC (12.0-14.7)
[2019-06-25 04:55] LABS: ALT (SGPT) 590 U/L (8-55); AST (SGOT) 134 U/L (5-34); Albumin 3.3 g/dL (3.5-5.0); Alkaline Phosphatase 93 U/L (40-110); Anion Gap 12 mmol/L (10-20); BUN (Urea Nitrogen) 26 mg/dL (9.8-20.1); Bilirubin, Total 0.9 mg/dL (0.2-1.2); Calc. Creatinine Clearance 111 mL/min (70-130); Calcium 8.4 mg/dL (7.8-10.44); Carbon Dioxide 32 mmol/L (22-29); Chloride 96 mmol/L (98-107); Estimated GFR-MDRD 80; Glucose 77 mg/dL (70-105); Potassium 3.1 mmol/L (3.5-5.1); Protein, Total 6.3 g/dL (6.0-8.3); Sodium 137 mmol/L (136-145)
[2019-06-25] MEDS: Vancomycin HCl 1 GM in Premix Bag 1 BAG IVPB SCH ×2 (05:41→17:49)
--- NOTE | 2019-06-25 06:36 | PDOC.FM ---
- Subjective Subjective: pt resting comfortably in bed, denies cp/sob - Objective Vital Signs & Weight: Vital Signs (12 hours) Temp Pulse Resp BP BP Pulse Ox 06/25/19 04:00 135/74 06/25/19 03:20 97.8 F 82 14 135/74 92 L 06/25/19 00:00 111/73 06/24/19 23:16 111/73 06/24/19 22:06 85 16 94 L 06/24/19 20:00 109/53 L 06/24/19 19:22 97.7 F 88 18 109/53 L 94 L 06/24/19 18:42 84 16 93 L Weight Admit Weight 92.164 kg Weight 86.046 kg I&O: 06/23/19 06/24/19 06/25/19 06:59 06:59 06:59 Intake Total 1420 1020 2640 Output Total 4500 3000 875 Balance -3080 -1979 1765 Result Diagrams: 06/25/19 04:02 06/25/19 04:02 Phys Exam - Physical Examination Constitutional: NAD HEENT: moist MMs Neck: no JVD Respiratory: clear to auscultation bilateral Cardiovascular: RRR, no significant murmur Gastrointestinal: no distention Musculoskeletal: pulses present Neurological: moves all 4 limbs Psychiatric: normal affect Skin: no rash Dx/Plan (1) HTN (hypertension) Code(s): I10 - ESSENTIAL (PRIMARY) HYPERTENSION Status: Acute (2) PVD (peripheral vascular disease) Code(s): I73.9 - PERIPHERAL VASCULAR DISEASE, UNSPECIFIED Status: Acute (3) CHF exacerbation Code(s): I50.9 - HEART FAILURE, UNSPECIFIED Status: Suspected (4) COPD (chronic obstructive pulmonary disease) Status: Suspected - Plan Plan: HFrEF - cardiomegaly, pleural effusion, bnp/trop elevated on admission - Echo reveals 20% EF, valve abnormalities, cannot exclude endocarditis - cardiology consulted, appreciate recs - lasix, coreg, metolazone Multi-vessel CAD - not amenable to stenting, prohibative risks for surgery - optimize medical mgmt possible endocarditis - febrile, seen on TTE, vanc, rocephin - PRISCILLA possible on thursday Transaminitis, improving - AST/ALT markedly elevated on admission - full panel workup negative thus far, US reveals GB wall edema COPD exacerbation - No formal diagnosis. 40-50pk year history - resolved influenza A - tamiflu HTN - Continue home meds Alcohol use disorder - monitor DVT Ppx: Lovenox Code Status: Full dispo: begin DC planning, PRISCILLA thursday
[2019-06-25] MEDS ORDERED: Potassium Chloride 20 MEQ TAB PO SCH (06:45)
[2019-06-25] MEDS: Furosemide 40 MG/4 ML VIAL SLOW IVP SCH ×2 (07:55→14:42)
[2019-06-25] MEDS: Losartan 25 MG TAB PO SCH (08:03)
[2019-06-25] MEDS: Magnesium Oxide 400 MG TAB PO SCH (08:03)
[2019-06-25] MEDS: Folic Acid 1 MG TAB PO SCH (08:04)
[2019-06-25] MEDS: Carvedilol 3.125 MG TAB PO SCH ×2 (08:04→17:49)
[2019-06-25] MEDS: Potassium Chloride 20 MEQ TAB PO SCH (08:04)
[2019-06-25] MEDS: Thiamine 100 MG TAB PO SCH (08:04)
[2019-06-25] MEDS: Multivitamin W/ Minerals 1 TAB PO SCH (08:04)
[2019-06-25] MEDS: cefTRIAXone\\ROCEPHIN 1 GM in Sodium Chloride 0.9% 100 ML IVPB SCH (10:47)
[2019-06-25] MEDS: Nicotine 14 MG PATCH TD SCH (14:35)
--- NOTE | 2019-06-25 16:29 | PDOC.CPN ---
- Subjective Date: 06/25/19 Time: 13:00 Interval history: No new issues. No new complaints. No angina. - Review of Systems General: denies: fever/chills, weight/appetite/sleep changes, night sweats, fatigue Respiratory: denies: cough, congestion, shortness of breath, exercise intolerance Cardiovascular: reports: edema. denies: chest pain, palpitation, paroxysmal nocturnal dyspnea, orthopnea Gastrointestinal: denies: nausea, vomiting, diarrhea, constipation, abd pain, GI bleeding Musculoskeletal: denies: pain, tenderness, stiffness, swelling, arthritis/ arthralgias Neurological: denies: numbness, syncope, seizure, weakness - Objective Allergies/Adverse Reactions: Allergies Allergy/AdvReac Type Severity Reaction Status Date / Time tramadol Allergy Verified 06/18/19 21:33 Visit Medications: Current Medications Acetaminophen (Tylenol) 650 mg PO Q4H PRN PRN Reason: Headache/Fever/Mild Pain (1-3) Last Admin: 06/20/19 09:50 Dose: 650 mg Acetaminophen/Codeine Phosphate (Tylenol #3) 1 tab PO Q4H PRN PRN Reason: Mild Pain (1-3) Acetaminophen/Codeine Phosphate (Tylenol #3) 2 tab PO Q4H PRN PRN Reason: Moderate Pain (4-6) Albuterol/Ipratropium (Duoneb) 3 ml NEB [id number] [facility] Last Admin: 06/25/19 14:56 Dose: 3 ml Benzonatate (Tessalon) 100 mg PO Q4H PRN PRN Reason: Cough Last Admin: 06/23/19 05:57 Dose: 100 mg Calcium Carbonate (Tums) 1,000 mg PO Q4H PRN PRN Reason: Heartburn or Indigestion Carvedilol (Coreg) 3.125 mg PO BID-WM [facility] Last Admin: 06/25/19 08:04 Dose: 3.125 mg Diazepam (Valium) 5 mg PO Q4H PRN PRN Reason: FOR ASE 10 OR GREATER Folic Acid (Folvite) 1 mg PO DAILY [facility] Last Admin: 06/25/19 08:04 Dose: 1 mg Furosemide (Lasix) 40 mg SLOW IVP 0600,1400 [facility] Last Admin: 06/25/19 14:42 Dose: Not Given Guaifenesin/Dextromethorphan (Robitussin Dm) 15 ml PO Q4H PRN PRN Reason: Cough Ceftriaxone Sodium 1 gm/ (Sodium Chloride) 100 mls @ 200 mls/hr IVPB Q24HR [facility] Last Admin: 06/25/19 10:47 Dose: 100 mls Vancomycin HCl 1 gm/ Device 200 mls @ 200 mls/hr IVPB 0500,1700 [facility] Last Admin: 06/25/19 05:41 Dose: 200 mls Iron/Minerals/Multivitamins (Theragran M) 1 tab PO DAILY [facility] Last Admin: 06/25/19 08:04 Dose: 1 tab Losartan Potassium (Cozaar) 25 mg PO DAILY [facility] Last Admin: 06/25/19 08:03 Dose: 25 mg Magnesium Oxide (Magnesium Oxide) 400 mg PO DAILY [facility] Last Admin: 06/25/19 08:03 Dose: 400 mg Miscellaneous Medication (Pharmacy To Dose) 1 each IVPB PRN PRN PRN Reason: Pharmacy to dose Nicotine (Nicoderm Patch) 14 mg TD Q24HR [facility] Last Admin: 06/25/19 14:35 Dose: 14 mg Nitroglycerin (Nitrostat) 0.4 mg SL Q5MIN PRN PRN Reason: Chest Pain Ondansetron HCl (Zofran Odt) 4 mg PO Q6H PRN PRN Reason: Nausea/Vomiting Potassium Chloride (K-Dur) 20 meq PO QAM-WM [facility] Last Admin: 06/25/19 08:04 Dose: Not Given Senna/Docusate Sodium (Senokot S) 2 tab PO BIDPRN PRN PRN Reason: Constipation Sodium Chloride (Flush - Normal Saline) 10 ml IVF PRN PRN PRN Reason: Saline Flush Last Admin: 06/22/19 05:16 Dose: 10 ml Thiamine HCl (Thiamine) 100 mg PO DAILY [facility] Last Admin: 06/25/19 08:04 Dose: 100 mg Vital Signs & Weight: Vital Signs Temp Pulse Resp BP BP BP Pulse Ox 06/25/19 14:56 79 16 06/25/19 14:35 88/51 L 06/25/19 11:34 97.6 F 79 18 100/59 L 100/59 L 92 L 06/25/19 09:52 89 18 06/25/19 08:00 97.7 F 84 18 118/72 118/72 92 L Admit Weight 203 lb 3 oz Weight 183 lb 3.2 oz - Physical Exam General: alert & oriented x3 HEENT: mucus membranes moist Neck: supple neck Cardiac: systolic murmur Lungs: clear to auscultation Neuro: grossly intact Abdomen: active bowel sounds Extremities: 1+ LE edema Skin: clear Musculoskeletal: no pain - Labs Result Diagrams: 06/25/19 04:02 06/25/19 04:02 Troponin/CKMB CK-MB (CK-2) 1.8 ng/mL (0-6.6) 06/18/19 11:32 Troponin I 0.122 ng/mL (< 0.028) H 06/19/19 04:14 - Telemetry Sinus rhythms and dysrhythmias: sinus rhythm - Assessment/Plan Assessment/Plan: 1. Ischemic CM 2. Dilated Cm EF at 20-25% 3. CAD, severe LCx and RCA 4. Severe MR 5. Possible endocarditis. PLAN: - Stable at this time. - Plan for PRISCILLA Thursday to evaluate for possible endocarditis. - Poor shelter prognosis with reduced EF and severe MR.
[2019-06-26 04:33] LABS: #Eosinphils 0.5 thou/uL (0.0-0.7); #Lymphocytes 1.7 thou/uL (1.20-3.40); #Monocytes 0.6 thou/uL (0.11-0.59); #Neutrophils 5.6 thou/uL (1.40-6.50); %Basophils 0.4 % (0.0-1.0); %Eosinophils 5.5 % (0.0-10.0); %Lymphocytes 19.8 % (21.0-51.0); %Monocytes 7.3 % (0.0-10.0); Hemoglobin 12.7 g/dL (12.0-16.0); Mean Corpuscular HGB CONC 33.4 g/dL (32.0-36.0); Mean Corpuscular Volume 89.9 fL (78.0-98.0); Mean Platelet Volume 9.3 fL (7.4-10.4); Platelet Count 166 thou/uL (130-400); RBC Distribution Width 14.9 % (11.5-14.5); Red Blood Cell (RBC) Count 4.23 mill/uL (4.20-5.40); White Blood Cell (WBC) Count 8.3 thou/uL (4.8-10.8)
[2019-06-26 04:57] LABS: ALT (SGPT) 437 U/L (8-55); AST (SGOT) 96 U/L (5-34); Albumin 3.3 g/dL (3.5-5.0); Alkaline Phosphatase 90 U/L (40-110); Anion Gap 11 mmol/L (10-20); BUN (Urea Nitrogen) 23 mg/dL (9.8-20.1); Bilirubin, Total 0.9 mg/dL (0.2-1.2); Calc. Creatinine Clearance 97 mL/min (70-130); Calcium 8.5 mg/dL (7.8-10.44); Carbon Dioxide 31 mmol/L (22-29); Chloride 98 mmol/L (98-107); Estimated GFR-MDRD 71; Globulin 3.1 g/dL (2.4-3.5); Glucose 83 mg/dL (70-105); Potassium 3.5 mmol/L (3.5-5.1); Protein, Total 6.4 g/dL (6.0-8.3); Sodium 136 mmol/L (136-145)
[2019-06-26] MEDS: Vancomycin HCl 1 GM in Premix Bag 1 BAG IVPB SCH ×3 (05:46→17:24)
[2019-06-26] MEDS: Furosemide 40 MG/4 ML VIAL SLOW IVP SCH (05:46)
--- NOTE | 2019-06-26 06:11 | PRG ---
DATE OF SERVICE: 06/25/2019 Please see note from Dr. Luis Gaming, for which I agree. The patient was seen, evaluated, discussed, and examined by bedside. No major changes overnight. Sounds like her breathing is doing better. Is going to be getting a transesophageal echocardiogram to rule out endocarditis and is currently on medicines for that just in case, although it sounds like cultures are fine, and it sounds like most of this was the flu that brought her in, which revealed her multivessel coronary artery disease and systolic heart failure with reduced ejection fraction around 20%. She will need a LifeVest as it sounds like inoperable coronary artery disease, and did not sound like Cardiology felt they could stent it, so medication management, but still working up the possibility of endocarditis and finishing off her Tamiflu in the meantime. Job ID: [id number]
--- NOTE | 2019-06-26 07:06 | PDOC.FM ---
- Subjective Subjective: pt denies dyspnea, or cp - Objective Vital Signs & Weight: Vital Signs (12 hours) Temp Pulse Resp BP Pulse Ox 06/26/19 05:40 98.3 F 83 16 100/54 L 94 L 06/25/19 22:22 74 16 94 L 06/25/19 20:23 98.6 F 91 20 119/79 94 L 06/25/19 19:24 71 16 95 Weight Admit Weight 92.164 kg Weight 83.007 kg I&O: 06/25/19 06/26/19 06/27/19 06:59 06:59 06:59 Intake Total 3140 1200 Output Total 2225 3200 Balance 915 -1999 Result Diagrams: 06/26/19 04:12 06/26/19 04:11 Phys Exam - Physical Examination Constitutional: NAD HEENT: moist MMs Neck: no JVD Gastrointestinal: no distention Musculoskeletal: no edema Neurological: moves all 4 limbs Psychiatric: normal affect Skin: no rash Dx/Plan (1) HTN (hypertension) Code(s): I10 - ESSENTIAL (PRIMARY) HYPERTENSION Status: Acute (2) PVD (peripheral vascular disease) Code(s): I73.9 - PERIPHERAL VASCULAR DISEASE, UNSPECIFIED Status: Acute (3) CHF exacerbation Code(s): I50.9 - HEART FAILURE, UNSPECIFIED Status: Suspected (4) COPD (chronic obstructive pulmonary disease) Status: Suspected - Plan Plan: HFrEF - cardiomegaly, pleural effusion, bnp/trop elevated on admission - Echo reveals 20% EF, valve abnormalities, cannot exclude endocarditis - cardiology consulted, appreciate recs - lasix, coreg Multi-vessel CAD - not amenable to stenting, prohibative risks for surgery - optimize medical mgmt possible endocarditis - febrile, seen on TTE, vanc, rocephin - PRISCILLA possible on thursday Transaminitis, improving - AST/ALT markedly elevated on admission - full panel workup negative thus far, US reveals GB wall edema COPD exacerbation - No formal diagnosis. 40-50pk year history - resolved influenza A - tamiflu HTN - Continue home meds Alcohol use disorder - monitor DVT Ppx: Lovenox Code Status: Full dispo: begin DC planning, PRISCILLA thursday
[2019-06-26] MEDS: Potassium Chloride 20 MEQ TAB PO SCH (08:15)
[2019-06-26] MEDS: Magnesium Oxide 400 MG TAB PO SCH (08:15)
[2019-06-26] MEDS: Multivitamin W/ Minerals 1 TAB PO SCH (08:15)
[2019-06-26] MEDS: Thiamine 100 MG TAB PO SCH (08:15)
[2019-06-26] MEDS: Carvedilol 3.125 MG TAB PO SCH ×2 (08:15→16:49)
[2019-06-26] MEDS: Folic Acid 1 MG TAB PO SCH (08:15)
[2019-06-26] MEDS: Furosemide 40 MG TAB PO SCH ×2 (08:16→13:42)
[2019-06-26] MEDS: Losartan 25 MG TAB PO SCH (08:16)
[2019-06-26] MEDS ORDERED: Furosemide 20 MG TAB PO SCH (09:00)
[2019-06-26] MEDS: cefTRIAXone\\ROCEPHIN 1 GM in Sodium Chloride 0.9% 100 ML IVPB SCH (11:05)
[2019-06-26] MEDS: Nicotine 14 MG PATCH TD SCH (13:43)
--- NOTE | 2019-06-26 15:56 | PDOC.CPN ---
- Subjective Date: 06/26/19 Time: 15:54 Interval history: No new issues. Feels a little more SOB today. Better with nebs. - Review of Systems General: denies: fever/chills, weight/appetite/sleep changes, night sweats, fatigue Respiratory: reports: shortness of breath. denies: cough, congestion, exercise intolerance Cardiovascular: denies: chest pain, palpitation, edema, paroxysmal nocturnal dyspnea, orthopnea Gastrointestinal: denies: nausea, vomiting, diarrhea, constipation, abd pain, GI bleeding Musculoskeletal: denies: pain, tenderness, stiffness, swelling, arthritis/ arthralgias Neurological: denies: numbness, syncope, seizure, weakness - Objective Allergies/Adverse Reactions: Allergies Allergy/AdvReac Type Severity Reaction Status Date / Time tramadol Allergy Verified 06/18/19 21:33 Visit Medications: Current Medications Acetaminophen (Tylenol) 650 mg PO Q4H PRN PRN Reason: Headache/Fever/Mild Pain (1-3) Last Admin: 06/20/19 09:50 Dose: 650 mg Acetaminophen/Codeine Phosphate (Tylenol #3) 1 tab PO Q4H PRN PRN Reason: Mild Pain (1-3) Acetaminophen/Codeine Phosphate (Tylenol #3) 2 tab PO Q4H PRN PRN Reason: Moderate Pain (4-6) Albuterol/Ipratropium (Duoneb) 3 ml NEB [id number] [facility] Last Admin: 06/26/19 14:37 Dose: 3 ml Benzonatate (Tessalon) 100 mg PO Q4H PRN PRN Reason: Cough Last Admin: 06/23/19 05:57 Dose: 100 mg Calcium Carbonate (Tums) 1,000 mg PO Q4H PRN PRN Reason: Heartburn or Indigestion Carvedilol (Coreg) 3.125 mg PO BID-WM [facility] Last Admin: 06/26/19 08:15 Dose: 3.125 mg Diazepam (Valium) 5 mg PO Q4H PRN PRN Reason: FOR ASE 10 OR GREATER Folic Acid (Folvite) 1 mg PO DAILY [facility] Last Admin: 06/26/19 08:15 Dose: 1 mg Furosemide (Lasix) 40 mg PO 0900,1400 [facility] Last Admin: 06/26/19 13:42 Dose: 40 mg Guaifenesin/Dextromethorphan (Robitussin Dm) 15 ml PO Q4H PRN PRN Reason: Cough Ceftriaxone Sodium 1 gm/ (Sodium Chloride) 100 mls @ 200 mls/hr IVPB Q24HR [facility] Last Admin: 06/26/19 11:05 Dose: 100 mls Vancomycin HCl 1 gm/ Device 200 mls @ 200 mls/hr IVPB 0500,1700 [facility] Last Admin: 06/26/19 05:46 Dose: 200 mls Iron/Minerals/Multivitamins (Theragran M) 1 tab PO DAILY [facility] Last Admin: 06/26/19 08:15 Dose: 1 tab Losartan Potassium (Cozaar) 25 mg PO DAILY [facility] Last Admin: 06/26/19 08:16 Dose: 25 mg Magnesium Oxide (Magnesium Oxide) 400 mg PO DAILY [facility] Last Admin: 06/26/19 08:15 Dose: 400 mg Miscellaneous Medication (Pharmacy To Dose) 1 each IVPB PRN PRN PRN Reason: Pharmacy to dose Nicotine (Nicoderm Patch) 14 mg TD Q24HR [facility] Last Admin: 06/26/19 13:43 Dose: 14 mg Nitroglycerin (Nitrostat) 0.4 mg SL Q5MIN PRN PRN Reason: Chest Pain Ondansetron HCl (Zofran Odt) 4 mg PO Q6H PRN PRN Reason: Nausea/Vomiting Potassium Chloride (K-Dur) 20 meq PO QAM-WM [facility] Last Admin: 06/26/19 08:15 Dose: 20 meq Senna/Docusate Sodium (Senokot S) 2 tab PO BIDPRN PRN PRN Reason: Constipation Sodium Chloride (Flush - Normal Saline) 10 ml IVF PRN PRN PRN Reason: Saline Flush Last Admin: 06/22/19 05:16 Dose: 10 ml Thiamine HCl (Thiamine) 100 mg PO DAILY [facility] Last Admin: 06/26/19 08:15 Dose: 100 mg Vital Signs & Weight: Vital Signs Temp Pulse Resp BP BP BP Pulse Ox 06/26/19 14:37 89 16 06/26/19 11:55 97.6 F 90 20 97/59 L 93 L 06/26/19 08:30 90 18 06/26/19 07:40 97.8 F 88 16 111/62 111/62 95 06/26/19 05:40 98.3 F 83 16 100/54 L 94 L Admit Weight 203 lb 3 oz Weight 183 lb - Physical Exam General: alert & oriented x3 HEENT: mucus membranes moist Neck: supple neck Cardiac: regular rate and rhythm Lungs: clear to auscultation, no wheezes Neuro: grossly intact Abdomen: active bowel sounds Extremities: no edema Skin: clear Musculoskeletal: no pain - Labs Result Diagrams: 06/26/19 04:12 06/26/19 04:11 Troponin/CKMB CK-MB (CK-2) 1.8 ng/mL (0-6.6) 06/18/19 11:32 Troponin I 0.122 ng/mL (< 0.028) H 06/19/19 04:14 - Telemetry Sinus rhythms and dysrhythmias: sinus rhythm - Assessment/Plan Assessment/Plan: 1. Ischemic CM 2. Dilated Cm EF at 20-25% 3. CAD, severe LCx and RCA 4. Severe MR 5. Possible endocarditis. PLAN: - CV stable. - PRISCILLA tomorrow to evaluate for possible endocarditis. - Poor long-term prognosis with reduced EF and severe MR.
[2019-06-26 16:33] LABS: Vancomycin, Trough 22.7 ug/mL
--- NOTE | 2019-06-26 17:28 | PRG ---
DATE OF SERVICE: 06/26/2019 please see note from Dr. Luis Gaming, for which I agree. The patient was seen, evaluated, discussed, and examined with the residents by bedside. Basically, she is stable. We are awaiting on a PRISCILLA tomorrow to rule out endocarditis. Also waiting on possible LifeVest evaluation for an extremely low ejection fraction. We are finishing up her Tamiflu with no more flu signs or symptoms and because deemed inoperable coronary artery disease, the Cardiology thought they could not stent either as opposed to medication management and anticipate hopefully if the PRISCILLA is normal with no vegetation, she could probably go out tomorrow. Job ID: [id number]
[2019-06-26] MEDS: Vancomycin HCl 750 MG in Sodium Chloride 0.9% 250 ML 250 ML IVPB SCH (17:47)
[2019-06-27 04:54] LABS: ALT (SGPT) 351 U/L (8-55); AST (SGOT) 81 U/L (5-34); Albumin 3.4 g/dL (3.5-5.0); Alkaline Phosphatase 84 U/L (40-110); Anion Gap 15 mmol/L (10-20); BUN (Urea Nitrogen) 20 mg/dL (9.8-20.1); Calc. Creatinine Clearance 95 mL/min (70-130); Calcium 8.9 mg/dL (7.8-10.44); Carbon Dioxide 28 mmol/L (22-29); Chloride 97 mmol/L (98-107); Estimated GFR-MDRD 70; Globulin 3.4 g/dL (2.4-3.5); Glucose 92 mg/dL (70-105); Potassium 3.6 mmol/L (3.5-5.1); Protein, Total 6.8 g/dL (6.0-8.3); Sodium 136 mmol/L (136-145)
[2019-06-27 05:16] LABS: #Eosinphils 0.6 thou/uL (0.0-0.7); #Monocytes 0.8 thou/uL (0.11-0.59); #Neutrophils 5.9 thou/uL (1.40-6.50); %Basophils 0.5 % (0.0-1.0); %Eosinophils 6.3 % (0.0-10.0); %Lymphocytes 21.1 % (21.0-51.0); %Monocytes 8.1 % (0.0-10.0); Hemoglobin 12.4 g/dL (12.0-16.0); Mean Corpuscular Hemoglobin 29.8 pg (27.0-31.0); Mean Corpuscular Volume 90.3 fL (78.0-98.0); Mean Platelet Volume 9.7 fL (7.4-10.4); Platelet Count 170 thou/uL (130-400); RBC Distribution Width 15.2 % (11.5-14.5); Red Blood Cell (RBC) Count 4.16 mill/uL (4.20-5.40); White Blood Cell (WBC) Count 9.2 thou/uL (4.8-10.8)
[2019-06-27] MEDS: Vancomycin HCl 750 MG in Sodium Chloride 0.9% 250 ML 250 ML IVPB SCH ×2 (06:28→18:18)
--- NOTE | 2019-06-27 06:51 | PDOC.FM ---
- Subjective Subjective: pt sleeping comfortably in bed, denies cp/fever - Objective Vital Signs & Weight: Vital Signs (12 hours) Temp Pulse Resp BP Pulse Ox 06/27/19 05:35 98.6 F 99 16 112/60 94 L 06/26/19 22:14 94 16 94 L 06/26/19 19:51 98.1 F 102 H 18 95/54 L 95 Weight Admit Weight 92.164 kg Weight 82.282 kg I&O: 06/25/19 06/26/19 06/27/19 06:59 06:59 06:59 Intake Total 3140 1200 2570 Output Total 2225 3200 3800 Balance 664 -1191 -1991 Result Diagrams: 06/27/19 04:09 06/27/19 04:09 Phys Exam - Physical Examination Constitutional: NAD HEENT: moist MMs Neck: no JVD Gastrointestinal: no distention Musculoskeletal: no edema Neurological: moves all 4 limbs Psychiatric: normal affect Skin: no rash Dx/Plan (1) HTN (hypertension) Code(s): I10 - ESSENTIAL (PRIMARY) HYPERTENSION Status: Acute (2) PVD (peripheral vascular disease) Code(s): I73.9 - PERIPHERAL VASCULAR DISEASE, UNSPECIFIED Status: Acute (3) CHF exacerbation Code(s): I50.9 - HEART FAILURE, UNSPECIFIED Status: Suspected (4) COPD (chronic obstructive pulmonary disease) Status: Suspected - Plan Plan: HFrEF - cardiomegaly, pleural effusion, bnp/trop elevated on admission - Echo reveals 20% EF, valve abnormalities, cannot exclude endocarditis - cardiology consulted, appreciate recs - lasix, coreg - will need life vest before DC Multi-vessel CAD - not amenable to stenting, prohibative risks for surgery - optimize medical mgmt possible endocarditis - febrile, seen on TTE, vanc, rocephin - PRISCILLA possible on thursday Transaminitis, improving - AST/ALT markedly elevated on admission - full panel workup negative thus far, US reveals GB wall edema COPD exacerbation - No formal diagnosis. 40-50pk year history - resolved influenza A - tamiflu HTN - Continue home meds Alcohol use disorder - monitor DVT Ppx: Lovenox Code Status: Full dispo: PRISCILLA today, possible dc after if neg/tomorrow. Addendum - Attending - Attending Attestation Date/Time: 06/27/19 [id number] I personally evaluated the patient and discussed the management with Dr. Gaming I agree with the History, Examination, Assessment and Plan documented above with any addition or exceptions noted below. Awaiting PRISCILLA today patient stable at present will continue evaluation for recommended lifevest. Discussed discharge care plans with Patient and Daughter pending results echo could d/c antibiotics.
[2019-06-27] MEDS: Carvedilol 3.125 MG TAB PO SCH ×2 (08:12→18:18)
[2019-06-27] MEDS: Potassium Chloride 20 MEQ TAB PO SCH (08:12)
[2019-06-27] MEDS: Losartan 25 MG TAB PO SCH (08:13)
[2019-06-27] MEDS: Thiamine 100 MG TAB PO SCH (08:13)
[2019-06-27] MEDS: Folic Acid 1 MG TAB PO SCH (08:13)
[2019-06-27] MEDS: Multivitamin W/ Minerals 1 TAB PO SCH (08:13)
[2019-06-27] MEDS: Furosemide 40 MG TAB PO SCH ×2 (08:13→14:09)
[2019-06-27] MEDS: Magnesium Oxide 400 MG TAB PO SCH (08:13)
[2019-06-27] MEDS: cefTRIAXone\\ROCEPHIN 1 GM in Sodium Chloride 0.9% 100 ML IVPB SCH (10:38)
[2019-06-27] MEDS: Nicotine 14 MG PATCH TD SCH (14:09)
--- NOTE | 2019-06-27 14:50 | PDOC.CPN ---
- Subjective Date: 06/27/19 Time: 14:48 Interval history: No new issues. - Review of Systems General: denies: fever/chills, weight/appetite/sleep changes, night sweats, fatigue Respiratory: denies: cough, congestion, shortness of breath, exercise intolerance Cardiovascular: denies: chest pain, palpitation, edema, paroxysmal nocturnal dyspnea, orthopnea Gastrointestinal: denies: nausea, vomiting, diarrhea, constipation, abd pain, GI bleeding Musculoskeletal: denies: pain, tenderness, stiffness, swelling, arthritis/ arthralgias Neurological: denies: numbness, syncope, seizure, weakness - Objective Allergies/Adverse Reactions: Allergies Allergy/AdvReac Type Severity Reaction Status Date / Time tramadol Allergy Verified 06/18/19 21:33 Visit Medications: Current Medications Acetaminophen (Tylenol) 650 mg PO Q4H PRN PRN Reason: Headache/Fever/Mild Pain (1-3) Last Admin: 06/20/19 09:50 Dose: 650 mg Acetaminophen/Codeine Phosphate (Tylenol #3) 1 tab PO Q4H PRN PRN Reason: Mild Pain (1-3) Acetaminophen/Codeine Phosphate (Tylenol #3) 2 tab PO Q4H PRN PRN Reason: Moderate Pain (4-6) Albuterol/Ipratropium (Duoneb) 3 ml NEB [id number] [facility] Last Admin: 06/27/19 10:25 Dose: 3 ml Benzonatate (Tessalon) 100 mg PO Q4H PRN PRN Reason: Cough Last Admin: 06/23/19 05:57 Dose: 100 mg Calcium Carbonate (Tums) 1,000 mg PO Q4H PRN PRN Reason: Heartburn or Indigestion Carvedilol (Coreg) 3.125 mg PO BID-WM [facility] Last Admin: 06/27/19 08:12 Dose: 3.125 mg Diazepam (Valium) 5 mg PO Q4H PRN PRN Reason: FOR ASE 10 OR GREATER Folic Acid (Folvite) 1 mg PO DAILY [facility] Last Admin: 06/27/19 08:13 Dose: 1 mg Furosemide (Lasix) 40 mg PO 0900,1400 [facility] Last Admin: 06/27/19 14:09 Dose: 40 mg Guaifenesin/Dextromethorphan (Robitussin Dm) 15 ml PO Q4H PRN PRN Reason: Cough Ceftriaxone Sodium 1 gm/ (Sodium Chloride) 100 mls @ 200 mls/hr IVPB Q24HR [facility] Last Admin: 06/27/19 10:38 Dose: 100 mls Vancomycin HCl 750 mg/ Sodium (Chloride) 250 mls @ 250 mls/hr IVPB 0600,1800 [facility] Last Admin: 06/27/19 06:28 Dose: 250 mls Iron/Minerals/Multivitamins (Theragran M) 1 tab PO DAILY [facility] Last Admin: 06/27/19 08:13 Dose: 1 tab Losartan Potassium (Cozaar) 25 mg PO DAILY [facility] Last Admin: 06/27/19 08:13 Dose: 25 mg Magnesium Oxide (Magnesium Oxide) 400 mg PO DAILY [facility] Last Admin: 06/27/19 08:13 Dose: 400 mg Miscellaneous Medication (Pharmacy To Dose) 1 each IVPB PRN PRN PRN Reason: Pharmacy to dose Mometasone Furoate/Formoterol Fumar (Dulera 200 Mcg/5 Mcg Inhaler) 1 puff INH BID-RT [facility] Nicotine (Nicoderm Patch) 14 mg TD Q24HR [facility] Last Admin: 06/27/19 14:09 Dose: 14 mg Nitroglycerin (Nitrostat) 0.4 mg SL Q5MIN PRN PRN Reason: Chest Pain Ondansetron HCl (Zofran Odt) 4 mg PO Q6H PRN PRN Reason: Nausea/Vomiting Potassium Chloride (K-Dur) 20 meq PO QAM-WM [facility] Last Admin: 06/27/19 08:12 Dose: 20 meq Senna/Docusate Sodium (Senokot S) 2 tab PO BIDPRN PRN PRN Reason: Constipation Sodium Chloride (Flush - Normal Saline) 10 ml IVF PRN PRN PRN Reason: Saline Flush Last Admin: 06/22/19 05:16 Dose: 10 ml Thiamine HCl (Thiamine) 100 mg PO DAILY [facility] Last Admin: 06/27/19 08:13 Dose: 100 mg Vital Signs & Weight: Vital Signs Temp Pulse Resp BP Pulse Ox 06/27/19 11:10 98.2 F 89 16 105/63 92 L 06/27/19 10:25 91 16 06/27/19 07:29 98.0 F 91 18 132/70 95 06/27/19 07:12 87 14 06/27/19 05:35 98.6 F 99 16 112/60 94 L Admit Weight 203 lb 3 oz Weight 181 lb 6.4 oz - Physical Exam General: alert & oriented x3 HEENT: mucus membranes moist Neck: supple neck Cardiac: regular rhythm, systolic murmur Lungs: clear to auscultation Neuro: grossly intact Abdomen: active bowel sounds Extremities: no cyanosis Skin: clear Musculoskeletal: no pain - Labs Result Diagrams: 06/27/19 04:09 06/27/19 04:09 Troponin/CKMB CK-MB (CK-2) 1.8 ng/mL (0-6.6) 06/18/19 11:32 Troponin I 0.122 ng/mL (< 0.028) H 06/19/19 04:14 - Telemetry Sinus rhythms and dysrhythmias: sinus rhythm - Assessment/Plan Assessment/Plan: 1. Ischemic CM 2. Dilated Cm EF at 20-25% 3. CAD, severe LCx and RCA 4. Severe MR 5. Possible endocarditis. PLAN: - CV stable. - PRISCILLA could not be done today as there is only one probe. Likely PRISCILLA tomorrow AM. 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
[2019-06-27] MEDS: Mometasone/Formoterol 120 PUFF INHALER INH SCH (18:37)
[2019-06-28 04:38] LABS: #Eosinphils 0.6 thou/uL (0.0-0.7); #Lymphocytes 1.5 thou/uL (1.20-3.40); #Monocytes 0.9 thou/uL (0.11-0.59); #Neutrophils 6.3 thou/uL (1.40-6.50); %Basophils 0.5 % (0.0-1.0); %Lymphocytes 15.8 % (21.0-51.0); %Monocytes 9.4 % (0.0-10.0); %Neutrophils 68.3 % (42.0-75.0); Hemoglobin 11.8 g/dL (12.0-16.0); Mean Corpuscular HGB CONC 33.6 g/dL (32.0-36.0); Mean Corpuscular Hemoglobin 30.2 pg (27.0-31.0); Mean Corpuscular Volume 89.9 fL (78.0-98.0); Mean Platelet Volume 9.2 fL (7.4-10.4); Platelet Count 156 thou/uL (130-400); RBC Distribution Width 15.3 % (11.5-14.5); Red Blood Cell (RBC) Count 3.91 mill/uL (4.20-5.40); White Blood Cell (WBC) Count 9.2 thou/uL (4.8-10.8)
[2019-06-28 04:59] LABS: ALT (SGPT) 255 U/L (8-55); AST (SGOT) 61 U/L (5-34); Albumin 3.2 g/dL (3.5-5.0); Alkaline Phosphatase 79 U/L (40-110); Anion Gap 14 mmol/L (10-20); BUN (Urea Nitrogen) 19 mg/dL (9.8-20.1); Bilirubin, Total 1.1 mg/dL (0.2-1.2); Calc. Creatinine Clearance 97 mL/min (70-130); Calcium 8.6 mg/dL (7.8-10.44); Carbon Dioxide 26 mmol/L (22-29); Chloride 99 mmol/L (98-107); Estimated GFR-MDRD 72; Globulin 3.4 g/dL (2.4-3.5); Glucose 92 mg/dL (70-105); Potassium 3.6 mmol/L (3.5-5.1); Protein, Total 6.6 g/dL (6.0-8.3); Sodium 135 mmol/L (136-145)
[2019-06-28 05:06] LABS: Vancomycin, Trough 18.3 ug/mL
[2019-06-28] MEDS: Mometasone/Formoterol 120 PUFF INHALER INH SCH ×2 (06:58→18:57)
--- NOTE | 2019-06-28 07:18 | PDOC.FM ---
- Subjective Subjective: pt resting comfortably in bed, denies sob/cp - Objective Vital Signs & Weight: Vital Signs (12 hours) Temp Pulse Resp BP Pulse Ox 06/28/19 03:30 98.6 F 86 20 95/51 L 95 06/28/19 03:05 85 16 95 06/28/19 03:04 88 16 96 06/27/19 22:11 88 16 95 06/27/19 19:45 98.9 F 90 16 99/50 L 94 L Weight Admit Weight 92.164 kg Weight 82.554 kg I&O: 06/27/19 06/28/19 06/29/19 06:59 06:59 06:59 Intake Total 2570 1390 Output Total 3800 1900 Balance -1230 -510 Result Diagrams: 06/28/19 04:25 06/28/19 04:25 Phys Exam - Physical Examination Constitutional: NAD HEENT: moist MMs Neck: no JVD Respiratory: clear to auscultation bilateral Cardiovascular: RRR, no significant murmur Gastrointestinal: no distention Musculoskeletal: no edema Neurological: moves all 4 limbs Psychiatric: normal affect Skin: no rash Dx/Plan (1) HTN (hypertension) Code(s): I10 - ESSENTIAL (PRIMARY) HYPERTENSION Status: Acute (2) PVD (peripheral vascular disease) Code(s): I73.9 - PERIPHERAL VASCULAR DISEASE, UNSPECIFIED Status: Acute (3) CHF exacerbation Code(s): I50.9 - HEART FAILURE, UNSPECIFIED Status: Suspected (4) COPD (chronic obstructive pulmonary disease) Status: Suspected - Plan Plan: HFrEF - cardiomegaly, pleural effusion, bnp/trop elevated on admission - Echo reveals 20% EF, valve abnormalities, cannot exclude endocarditis - cardiology consulted, appreciate recs - lasix, coreg - will need life vest before DC Multi-vessel CAD - not amenable to stenting, prohibative risks for surgery - optimize medical mgmt possible endocarditis - febrile, seen on TTE, vanc, rocephin - PRISCILLA today Transaminitis, improving - AST/ALT markedly elevated on admission - full panel workup negative thus far, US reveals GB wall edema COPD exacerbation - No formal diagnosis. 40-50pk year history - resolved influenza A - tamiflu HTN - Continue home meds Alcohol use disorder - monitor DVT Ppx: Lovenox Code Status: Full dispo: PRISCILLA today, possible dc after if neg Addendum - Attending - Attending Attestation Date/Time: 06/28/192148 I personally evaluated the patient and discussed the management with Dr. Gaming I agree with the History, Examination, Assessment and Plan documented above with any addition or exceptions noted below.
[2019-06-28] MEDS: Furosemide 40 MG TAB PO SCH ×2 (08:59→15:10)
[2019-06-28] MEDS: Carvedilol 3.125 MG TAB PO SCH ×2 (08:59→17:47)
[2019-06-28] MEDS: Losartan 25 MG TAB PO SCH (08:59)
[2019-06-28] MEDS: Potassium Chloride 20 MEQ TAB PO SCH (09:00)
[2019-06-28] MEDS: Thiamine 100 MG TAB PO SCH (09:00)
[2019-06-28] MEDS: Magnesium Oxide 400 MG TAB PO SCH (09:01)
[2019-06-28] MEDS: Multivitamin W/ Minerals 1 TAB PO SCH (09:01)
[2019-06-28] MEDS: Vancomycin HCl 750 MG in Sodium Chloride 0.9% 250 ML 250 ML IVPB SCH (09:01)
[2019-06-28] MEDS: Folic Acid 1 MG TAB PO SCH (09:01)
[2019-06-28] MEDS ORDERED: PROPOFOL 200 MG/20 ML VIAL ONE (09:33)
[2019-06-28] MEDS: cefTRIAXone\\ROCEPHIN 1 GM in Sodium Chloride 0.9% 100 ML IVPB SCH (10:22)
--- NOTE | 2019-06-28 10:26 | PRG ---
DATE OF SERVICE: 06/28/2019 SUBJECTIVE: Ms. Real is doing well. She is awaiting a PRISCILLA. She was recently turned down for previous surgery, felt to be at high risk. Discussed the case with Dr. Patel, who also feels she is at high risk even at a tertiary care center. This is due to her severe mitral regurgitation in addition to severe cardiomyopathy with severe multivessel disease. OBJECTIVE: VITAL SIGNS: Blood pressure 101/60, pulse 89, and temperature 97.7. LUNGS: Clear to auscultation. HEART: Regular rate and rhythm. ABDOMEN: Soft, nontender, and nondistended. EXTREMITIES: No edema. IMPRESSION: 1. Ischemic cardiomyopathy. 2. Tobacco abuse. 3. Severe mitral regurgitation. RECOMMENDATIONS: 1. Continue conservative therapy. 2. LifeVest in place; family will be able to afford the LifeVest and will be worn for at least 3 months. 3. Proceed with PRISCILLA to assess the mitral valve. I discussed the procedure in full detail with Ms. Real. Risks include, but not limited to following: Damage to teeth, mouth, back of throat; damage to esophagus, requiring emergency surgery as well as reaction to medication. All questions were answered. Given the above, the patient agreed to proceed above procedure. Once this is complete, it will be okay from my standpoint to discharge home with LifeVest and the following medications: 1. Carvedilol 3.125 one p.o. b.i.d. 2. Lasix 20 mg p.o. q.a.m. 3. Losartan 25 daily. 4. P.r.n. nitroglycerin. Job ID: [id number]
[2019-06-28] MEDS ORDERED: Albuterol Sulfate 1.25 MG/3 ML NEB ONE (13:04)
[2019-06-28 13:45] VITALS: BMI 31.2
[2019-06-28] MEDS: Nicotine 14 MG PATCH TD SCH (15:10)
[2019-06-28 16:48] VITALS: BP 108/75; TEMP 97.3
--- NOTE | 2019-06-29 01:33 | PQF ---
[employer] Win[employer] Viewer KRYSTAL ZUÑIGA BERNARD BLUM *r [id number] CLINICAL DOCUMENTATION CLARIFICATION FORM: POST DISCHARGE Addendum to original discharge summary date: ____ Late entry note date: __ DATE: 06/29/19 ATTN: Bernard Blum Please exercise your independent, professional judgment in responding to the clarification form. Clinical indicators are provided on the bottom of this form for your review Can you please further clarify if Acute hypoxic respiratory failure is ruled in or ruled out? Acute hypoxic respiratory failure [ x] Ruled in diagnosis [ ] Continue to treat [ x ] Resolved [ ] Ruled out diagnosis [ ] Cannot rule out diagnosis [ ] Other diagnosis [ ] Unable to determine In addition, please specify: Present on Admission (POA): [ x ] Yes [ ] No [ ] Unable to determine For continuity of documentation, please document condition throughout progress notes and discharge summary. Thank You. CLINICAL INDICATORS - SIGNS / SYMPTOMS / LABS H and P pg.6- acute hypoxic respiratory failure H and P pg.2- VS HR 114, BP 132/99, Respiration [address] Rivas pg.3- the elevated INR could be potentially seen with Sepsis Consult Dr. Rivas pg.3- Concurrent diagnosis of influenza A H and P pg.2- Heart tachycardic, lungs tachypneic H and P pg.3- Laboratory WBC 13.4H RISK FACTORS Influenza A- Family PN pg.3 COPD Family PN pg.3 CHF exacerbation- Family PN pg.3 Heavy Smoker- Family PN pg.3 HTN- H and P pg.1 TREATMENTS Albuterol sulfate- MAR BiPaP- ED Chest X ray 06/18 IV antibiotics- MAR Oxygen supplementation IV fluids- MAR Duoneb 3ml neb- MAR (This form is maintained as a part of the permanent medical record) 2014 [employer]. All Rights Reserved [email or web address]
--- NOTE | 2019-06-29 07:35 | OP ---
DATE OF PROCEDURE: 06/28/2019 PREPROCEDURE DIAGNOSIS: Endocarditis. POSTPROCEDURE DIAGNOSIS: No evidence of endocarditis. PROCEDURE PERFORMED: Transesophageal echocardiography. DESCRIPTION OF PROCEDURE: The patient was consented for the procedure. Propofol was used for conscious sedation. FINDINGS: Overall LVEF is at 25% to 30%. The mitral valve is well visualized. No obvious mass or vegetation present. The aortic valve was also well visualized. No mass or vegetations. Left atrial appendage and left atrium also well visualized with no mass or vegetation. The tricuspid valve and pulmonic valve appear within normal limits. IMPRESSION: No obvious source of endocarditis. Job ID: [id number]
--- NOTE | 2019-06-30 14:14 | EKG ---
Test Reason : Blood Pressure : / mmHG Vent. Rate : 122 BPM Atrial Rate : 122 BPM P-R Int : 132 ms QRS Dur : 096 ms QT Int : 314 ms P-R-T Axes : 038 019 046 degrees QTc Int : 447 ms Sinus tachycardia Possible Inferior infarct , age undetermined Abnormal ECG Confirmed by MIKKI CLARK ([id number]), image editor LAI BRADSHAW ([id number]) on 06/30/2019 2:13:38 PM Referred By: Confirmed By:MIKKI Kelly
== END 2019-06-28 18:20 | disposition home or self-care (01) | DRG 286 ==
LOC: ERS 11:11 → ERHOLD 13:17 → 2NO 17:50
PROVIDERS: ADMIT Emergency Medicine; ATTEND Emergency Medicine
PROC: 4A023N7 Measurement of Cardiac Sampling and Pressure, Left Heart, Percutaneous Approach (ICD-10-PCS; principal; 2019-06-24)
PROC: B2151ZZ Fluoroscopy of Left Heart using Low Osmolar Contrast (ICD-10-PCS; 2019-06-24)
PROC: B2111ZZ Fluoroscopy of Multiple Coronary Arteries using Low Osmolar Contrast (ICD-10-PCS; 2019-06-24)
PROC: B24BZZ4 Ultrasonography of Heart with Aorta, Transesophageal (ICD-10-PCS; 2019-06-28)
DX: I13.0 Hypertensive heart and chronic kidney disease with heart failure and stage 1 through stage 4 chronic kidney disease, or unspecified chronic kidney disease (principal); I50.21 Acute systolic (congestive) heart failure; J96.01 Acute respiratory failure with hypoxia; J44.1 Chronic obstructive pulmonary disease with (acute) exacerbation; N17.9 Acute kidney failure, unspecified; I47.1 Supraventricular tachycardia; I24.8 Other forms of acute ischemic heart disease; M62.82 Rhabdomyolysis; J10.1 Influenza due to other identified influenza virus with other respiratory manifestations; M54.5 Low back pain; G89.29 Other chronic pain; E78.5 Hyperlipidemia, unspecified; I25.10 Atherosclerotic heart disease of native coronary artery without angina pectoris; R74.0 Nonspecific elevation of levels of transaminase and lactic acid dehydrogenase [LDH]; I42.0 Dilated cardiomyopathy; I34.0 Nonrheumatic mitral (valve) insufficiency; I25.5 Ischemic cardiomyopathy; E11.22 Type 2 diabetes mellitus with diabetic chronic kidney disease; E11.51 Type 2 diabetes mellitus with diabetic peripheral angiopathy without gangrene; F17.210 Nicotine dependence, cigarettes, uncomplicated; F10.10 Alcohol abuse, uncomplicated; N18.9 Chronic kidney disease, unspecified; Z88.5 Allergy status to narcotic agent; Z91.19 Patient's noncompliance with other medical treatment and regimen; E66.9 Obesity, unspecified; Z68.31 Body mass index [BMI] 31.0-31.9, adult
CPT/HCPCS: 36415; 36416; 71045; 76705; 76942; 80048; 80053; 80074; 80076; 80202; 81001; 82103; 82390; 82550; 82553; 82728; 82805; 83036; 83516; 83540; 83550; 83735; 83880; 84145; 84443; 84484; 85025; 85060; 85610; 85730; 86038; 86225; 86644; 86645; 86664; 86665; 86780; 86803; 87040; 87389; 87633; 87804; 93005; 93306; 93312; 93458; 93798; 94640; 94660; 94760; 96374; 96375; C1769; J0696; J1644; J1650; J1940; J2001; J2930; J3370; J3430; J3490; J7050; J7512; J7620; Q9967

== ENCOUNTER 2020-08-16 08:24 | Outpatient (CLI) | payer MEDICAID ==
[2020-08-16] MEDS ORDERED: Iopamidol 370 76% 100 ML VIAL ONE (11:18)
== END 2020-08-16 08:25 | disposition home or self-care (01) ==
LOC: CT 08:24
PROVIDERS: ATTEND Physician Assistant
DX: I73.9 Peripheral vascular disease, unspecified (principal); I74.5 Embolism and thrombosis of iliac artery; I70.8 Atherosclerosis of other arteries
CPT/HCPCS: 75635; 82565; Q9967

== ENCOUNTER 2020-11-15 13:20 | Inpatient (IN) | payer OTHER ==
[~2020-11-15 13:20] MED LIST changes: -Azithromycin 250 MG TAB PO SCH; +Iopamidol-370 76% 500 ML 1 ML ONE
[2020-11-15 14:21] LABS: #Basophils 0.1 thou/uL (0.0-0.2); #Lymphocytes 0.7 thou/uL (1.20-3.40); #Monocytes 0.2 thou/uL (0.11-0.59); #Neutrophils 2.7 thou/uL (1.40-6.50); %Basophils 1.5 % (0.0-1.0); %Eosinophils 0.1 % (0.0-10.0); %Lymphocytes 19.9 % (21.0-51.0); %Monocytes 4.7 % (0.0-10.0); %Neutrophils 73.9 % (42.0-75.0); Hemoglobin 12.5 g/dL (12.0-16.0); Mean Corpuscular HGB CONC 35.2 g/dL (32.0-36.0); Mean Corpuscular Hemoglobin 33.2 pg (27.0-31.0); Mean Corpuscular Volume 94.2 fL (78.0-98.0); Mean Platelet Volume 9.2 fL (7.4-10.4); Platelet Count 133 thou/uL (130-400); RBC Distribution Width 12.8 % (11.5-14.5); Red Blood Cell (RBC) Count 3.78 mill/uL (4.20-5.40); White Blood Cell (WBC) Count 3.7 thou/uL (4.8-10.8)
[2020-11-15] MEDS ORDERED: Norepinephrine 8 MG/0.9% NS 250 ML ONE (14:43)
[2020-11-15 14:49] LABS: ALT (SGPT) 43 U/L (8-55); AST (SGOT) 71 U/L (5-34); Albumin 3.8 g/dL (3.5-5.0); Alkaline Phosphatase 70 U/L (40-110); Anion Gap 17 mmol/L (10-20); BUN (Urea Nitrogen) 16 mg/dL (9.8-20.1); Bilirubin, Total 0.5 mg/dL (0.2-1.2); Calc. Creatinine Clearance 0 mL/min (70-130); Calcium 8.3 mg/dL (7.8-10.44); Carbon Dioxide 19 mmol/L (22-29); Chloride 104 mmol/L (98-107); Globulin 3.4 g/dL (2.4-3.5); Glucose 118 mg/dL (70-105); Potassium 3.9 mmol/L (3.5-5.1); Protein, Total 7.2 g/dL (6.0-8.3); Sodium 136 mmol/L (136-145)
[2020-11-15 15:33] LABS: SARS-CoV-2 NAA Rapid Test DETECTED (NotDetected)
[2020-11-15] MEDS ORDERED: Dexamethasone 10 MG/ML VIAL ONE (15:51)
[2020-11-15] MEDS ORDERED: Acetaminophen 325 MG TAB PO PRN (16:04)
[2020-11-15] MEDS ORDERED: Guaifenesin DM 100-10/5 ML UDCUP PO PRN (16:04)
[2020-11-15] MEDS ORDERED: Ondansetron PF 4 MG/2 ML Vial IVP PRN (16:04)
[2020-11-15] MEDS ORDERED: Norepinephrine 8 MG/0.9% NS 250 ML IVPB SCH (16:04)
[2020-11-15] MEDS ORDERED: Sodium Chloride 0.9% 1,000 ML IV SCH (16:04)
[2020-11-15] MEDS ORDERED: Calcium Carbonate 500 MG ChewTAB PO PRN (16:04)
[2020-11-15] MEDS ORDERED: Bacteriostatic Water 30 ML VIAL FS PRN (16:45)
[2020-11-15] MEDS ORDERED: REMDESIVIR 200 MG in Sodium Chloride 0.9% 250 ML 210 ML IV SCH ×2 (18:00→21:15)
[2020-11-15] MEDS ORDERED: methylPREDNISolone Sod Succ/PF 125 MG/2 ML VIAL IVP SCH (18:00)
[2020-11-15 18:07] LABS: Lactic Acid 1.5 mmol/L (0.5-2.2)
[2020-11-15] MEDS: methylPREDNISolone Sod Succ 40 MG VIAL IVP SCH ×2 (22:19→22:25)
[2020-11-15] MEDS: Cholecalciferol 1,000 UNITS (25 MCG) TAB PO SCH (22:20)
[2020-11-15] MEDS: Enoxaparin Sodium 40 MG/0.4 ML SYRINGE SC SCH (22:25)
[2020-11-15] MEDS: Mometasone 200 MCG/Formoterol 5 MCG 120 PUFF INHALER INH SCH (22:51)
[2020-11-15] MEDS: Ivermectin 3 MG TAB PO SCH (22:53)
[2020-11-15 23:07] VITALS: BMI 43.6
[2020-11-16 04:10] LABS: #Lymphocytes 0.5 thou/uL (1.20-3.40); #Monocytes 0.1 thou/uL (0.11-0.59); #Neutrophils 2.8 thou/uL (1.40-6.50); %Eosinophils 0.1 % (0.0-10.0); %Lymphocytes 14.3 % (21.0-51.0); %Monocytes 2.9 % (0.0-10.0); %Neutrophils 82.8 % (42.0-75.0); Hemoglobin 11.9 g/dL (12.0-16.0); Mean Corpuscular Hemoglobin 32.9 pg (27.0-31.0); Mean Corpuscular Volume 94.1 fL (78.0-98.0); Mean Platelet Volume 8.6 fL (7.4-10.4); Platelet Count 116 thou/uL (130-400); RBC Distribution Width 12.6 % (11.5-14.5); Red Blood Cell (RBC) Count 3.61 mill/uL (4.20-5.40); White Blood Cell (WBC) Count 3.4 thou/uL (4.8-10.8)
[2020-11-16] MEDS: methylPREDNISolone Sod Succ 40 MG VIAL IVP SCH ×4 (05:45→17:54)
[2020-11-16] MEDS: Mometasone 200 MCG/Formoterol 5 MCG 120 PUFF INHALER INH SCH ×2 (06:55→18:50)
[2020-11-16] MEDS: Ascorbic Acid 500 mg Chewable Tablet PO SCH (08:51)
[2020-11-16] MEDS: Enoxaparin Sodium 40 MG/0.4 ML SYRINGE SC SCH ×2 (08:51→22:06)
[2020-11-16] MEDS: Aspirin Chewable 81 MG TAB PO SCH (08:51)
[2020-11-16] MEDS: Multivitamin W/ Minerals 1 TAB PO SCH (08:52)
[2020-11-16] MEDS: Zinc Sulfate 220 MG CAP PO SCH (08:52)
[2020-11-16] MEDS: Furosemide 20 MG TAB PO SCH ×2 (08:52→13:41)
[2020-11-16] MEDS: Folic Acid 1 MG TAB PO SCH (08:52)
[2020-11-16] MEDS: Ivermectin 3 MG TAB PO SCH (17:54)
[2020-11-16] MEDS: REMDESIVIR 100 MG in Sodium Chloride 0.9% 250 ML 230 ML IV SCH (18:44)
[2020-11-16] MEDS: Cholecalciferol 1,000 UNITS (25 MCG) TAB PO SCH (22:16)
[2020-11-17] MEDS: methylPREDNISolone Sod Succ 40 MG VIAL IVP SCH ×4 (01:37→17:31)
[2020-11-17 03:47] LABS: #Lymphocytes 0.6 thou/uL (1.20-3.40); #Monocytes 0.4 thou/uL (0.11-0.59); #Neutrophils 7.8 thou/uL (1.40-6.50); %Basophils 0.1 % (0.0-1.0); %Lymphocytes 7.2 % (21.0-51.0); %Monocytes 4.5 % (0.0-10.0); %Neutrophils 88.1 % (42.0-75.0); Hemoglobin 12.7 g/dL (12.0-16.0); Mean Corpuscular HGB CONC 34.7 g/dL (32.0-36.0); Mean Corpuscular Hemoglobin 32.6 pg (27.0-31.0); Mean Corpuscular Volume 93.8 fL (78.0-98.0); Mean Platelet Volume 8.8 fL (7.4-10.4); Platelet Count 148 thou/uL (130-400); RBC Distribution Width 12.7 % (11.5-14.5); Red Blood Cell (RBC) Count 3.91 mill/uL (4.20-5.40); White Blood Cell (WBC) Count 8.9 thou/uL (4.8-10.8)
[2020-11-17 04:07] LABS: ALT (SGPT) 35 U/L (8-55); AST (SGOT) 56 U/L (5-34); Albumin 3.3 g/dL (3.5-5.0); Alkaline Phosphatase 60 U/L (40-110); Anion Gap 18 mmol/L (10-20); BUN (Urea Nitrogen) 17 mg/dL (9.8-20.1); Bilirubin, Total 0.5 mg/dL (0.2-1.2); CRP (Inflammatory) 5.35 mg/dL (= or < 0.5); Calc. Creatinine Clearance 127 mL/min (70-130); Calcium 8.6 mg/dL (7.8-10.44); Carbon Dioxide 21 mmol/L (22-29); Chloride 106 mmol/L (98-107); Globulin 3.2 g/dL (2.4-3.5); Glucose 141 mg/dL (70-105); Magnesium 1.8 mg/dL (1.6-2.6); Potassium 3.5 mmol/L (3.5-5.1); Protein, Total 6.5 g/dL (6.0-8.3); Sodium 141 mmol/L (136-145)
[2020-11-17] MEDS: Mometasone 200 MCG/Formoterol 5 MCG 120 PUFF INHALER INH SCH ×2 (07:02→22:10)
[2020-11-17] MEDS: Multivitamin W/ Minerals 1 TAB PO SCH (09:11)
[2020-11-17] MEDS: Ascorbic Acid 500 mg Chewable Tablet PO SCH (09:11)
[2020-11-17] MEDS: Furosemide 20 MG TAB PO SCH ×2 (09:11→14:25)
[2020-11-17] MEDS: cefTRIAXone\\ROCEPHIN 1 GM in Sodium Chloride 0.9% 100 ML IVPB SCH (09:12)
[2020-11-17] MEDS: Aspirin Chewable 81 MG TAB PO SCH (09:12)
[2020-11-17] MEDS: Zinc Sulfate 220 MG CAP PO SCH (09:13)
[2020-11-17] MEDS: Enoxaparin Sodium 40 MG/0.4 ML SYRINGE SC SCH ×2 (09:13→21:14)
[2020-11-17] MEDS: Folic Acid 1 MG TAB PO SCH (09:15)
[2020-11-17] MEDS: Ivermectin 3 MG TAB PO SCH (17:30)
[2020-11-17] MEDS: REMDESIVIR 100 MG in Sodium Chloride 0.9% 250 ML 230 ML IV SCH (17:30)
[2020-11-17] MEDS: Cholecalciferol 1,000 UNITS (25 MCG) TAB PO SCH (21:14)
[2020-11-18] MEDS: methylPREDNISolone Sod Succ 40 MG VIAL IVP SCH ×4 (00:02→18:28)
[2020-11-18] MEDS: Mometasone 200 MCG/Formoterol 5 MCG 120 PUFF INHALER INH SCH ×2 (06:20→18:56)
[2020-11-18] MEDS: cefTRIAXone\\ROCEPHIN 1 GM in Sodium Chloride 0.9% 100 ML IVPB SCH (07:59)
[2020-11-18] MEDS: Enoxaparin Sodium 40 MG/0.4 ML SYRINGE SC SCH ×2 (07:59→21:21)
[2020-11-18] MEDS: Zinc Sulfate 220 MG CAP PO SCH (08:00)
[2020-11-18] MEDS: Ascorbic Acid 500 mg Chewable Tablet PO SCH (08:00)
[2020-11-18] MEDS: Furosemide 20 MG TAB PO SCH ×2 (08:00→15:02)
[2020-11-18] MEDS: Aspirin Chewable 81 MG TAB PO SCH (08:00)
[2020-11-18] MEDS: Multivitamin W/ Minerals 1 TAB PO SCH (08:01)
[2020-11-18] MEDS: Folic Acid 1 MG TAB PO SCH (08:01)
[2020-11-18] MEDS: REMDESIVIR 100 MG in Sodium Chloride 0.9% 250 ML 230 ML IV SCH (18:30)
[2020-11-18] MEDS: Ivermectin 3 MG TAB PO SCH (19:37)
[2020-11-18] MEDS: Cholecalciferol 1,000 UNITS (25 MCG) TAB PO SCH (21:21)
[2020-11-19] MEDS: methylPREDNISolone Sod Succ 40 MG VIAL IVP SCH ×4 (00:40→18:01)
[2020-11-19 02:02] LABS: #Lymphocytes 0.6 thou/uL (1.20-3.40); #Monocytes 0.7 thou/uL (0.11-0.59); #Neutrophils 8.5 thou/uL (1.40-6.50); %Basophils 0.1 % (0.0-1.0); %Eosinophils 0.1 % (0.0-10.0); %Lymphocytes 5.9 % (21.0-51.0); %Monocytes 6.8 % (0.0-10.0); %Neutrophils 87.1 % (42.0-75.0); Hemoglobin 13.7 g/dL (12.0-16.0); Mean Corpuscular HGB CONC 33.3 g/dL (32.0-36.0); Mean Corpuscular Hemoglobin 31.6 pg (27.0-31.0); Mean Corpuscular Volume 94.9 fL (78.0-98.0); Mean Platelet Volume 9.2 fL (7.4-10.4); Platelet Count 211 thou/uL (130-400); RBC Distribution Width 12.8 % (11.5-14.5); Red Blood Cell (RBC) Count 4.34 mill/uL (4.20-5.40); White Blood Cell (WBC) Count 9.8 thou/uL (4.8-10.8)
[2020-11-19 02:22] LABS: Anion Gap 17 mmol/L (10-20); BUN (Urea Nitrogen) 20 mg/dL (9.8-20.1); Calc. Creatinine Clearance 124 mL/min (70-130); Carbon Dioxide 25 mmol/L (22-29); Chloride 100 mmol/L (98-107); Glucose 159 mg/dL (70-105); Magnesium 1.8 mg/dL (1.6-2.6); Sodium 139 mmol/L (136-145)
[2020-11-19 02:24] LABS: Potassium 2.9 mmol/L (3.5-5.1)
[2020-11-19] MEDS ORDERED: Potassium Chloride 20 MEQ TAB PO SCH (02:45)
[2020-11-19] MEDS ORDERED: Electrolyte Replacement Protocol 1 EACH FS SCH (02:45)
[2020-11-19] MEDS ORDERED: Potassium Chloride 10 MEQ in Premix Bag 1 BAG IVPB SCH ×2 (03:00→04:00)
[2020-11-19] MEDS ORDERED: Magnesium 2 GM/50 ML 2 GM in Premix Bag 1 BAG IVPB SCH (03:00)
[2020-11-19] MEDS: Mometasone 200 MCG/Formoterol 5 MCG 120 PUFF INHALER INH SCH ×2 (05:18→21:54)
[2020-11-19 07:13] LABS: Potassium 3.7 mmol/L (3.5-5.1)
[2020-11-19] MEDS: Enoxaparin Sodium 40 MG/0.4 ML SYRINGE SC SCH ×2 (10:32→21:55)
[2020-11-19] MEDS: Ascorbic Acid 500 mg Chewable Tablet PO SCH (10:32)
[2020-11-19] MEDS: cefTRIAXone\\ROCEPHIN 1 GM in Sodium Chloride 0.9% 100 ML IVPB SCH (10:32)
[2020-11-19] MEDS: Aspirin Chewable 81 MG TAB PO SCH (10:32)
[2020-11-19] MEDS: Multivitamin W/ Minerals 1 TAB PO SCH (10:33)
[2020-11-19] MEDS: Furosemide 20 MG TAB PO SCH ×2 (10:33→16:01)
[2020-11-19] MEDS: Folic Acid 1 MG TAB PO SCH (10:33)
[2020-11-19] MEDS: Zinc Sulfate 220 MG CAP PO SCH (10:33)
[2020-11-19] MEDS ORDERED: Ivermectin 3 MG TAB PO SCH (14:00)
[2020-11-19] MEDS: REMDESIVIR 100 MG in Sodium Chloride 0.9% 250 ML 230 ML IV SCH (18:01)
[2020-11-19] MEDS: Cholecalciferol 1,000 UNITS (25 MCG) TAB PO SCH (21:54)
[2020-11-20] MEDS: methylPREDNISolone Sod Succ 40 MG VIAL IVP SCH ×5 (00:25→23:09)
[2020-11-20] MEDS: Mometasone 200 MCG/Formoterol 5 MCG 120 PUFF INHALER INH SCH ×2 (05:48→21:24)
[2020-11-20] MEDS: Enoxaparin Sodium 40 MG/0.4 ML SYRINGE SC SCH ×2 (08:14→21:24)
[2020-11-20] MEDS: Aspirin Chewable 81 MG TAB PO SCH (08:14)
[2020-11-20] MEDS: Folic Acid 1 MG TAB PO SCH (08:14)
[2020-11-20] MEDS: Zinc Sulfate 220 MG CAP PO SCH (08:14)
[2020-11-20] MEDS: cefTRIAXone\\ROCEPHIN 1 GM in Sodium Chloride 0.9% 100 ML IVPB SCH (08:14)
[2020-11-20] MEDS: Multivitamin W/ Minerals 1 TAB PO SCH (08:14)
[2020-11-20] MEDS: Ascorbic Acid 500 mg Chewable Tablet PO SCH (08:14)
[2020-11-20] MEDS: Furosemide 20 MG TAB PO SCH ×2 (08:14→11:40)
[2020-11-20 08:32] LABS: #Lymphocytes 0.6 thou/uL (1.20-3.40); #Monocytes 0.5 thou/uL (0.11-0.59); #Neutrophils 9.1 thou/uL (1.40-6.50); %Basophils 0.1 % (0.0-1.0); %Lymphocytes 6.1 % (21.0-51.0); %Monocytes 5.2 % (0.0-10.0); %Neutrophils 88.5 % (42.0-75.0); Hemoglobin 14.1 g/dL (12.0-16.0); Mean Corpuscular HGB CONC 34.8 g/dL (32.0-36.0); Mean Corpuscular Hemoglobin 32.8 pg (27.0-31.0); Mean Corpuscular Volume 94.2 fL (78.0-98.0); Platelet Count 237 thou/uL (130-400); RBC Distribution Width 12.8 % (11.5-14.5); Red Blood Cell (RBC) Count 4.31 mill/uL (4.20-5.40); White Blood Cell (WBC) Count 10.3 thou/uL (4.8-10.8)
[2020-11-20 08:53] LABS: ALT (SGPT) 32 U/L (8-55); AST (SGOT) 38 U/L (5-34); Albumin 3.3 g/dL (3.5-5.0); Alkaline Phosphatase 66 U/L (40-110); Anion Gap 11 mmol/L (10-20); BUN (Urea Nitrogen) 20 mg/dL (9.8-20.1); Bilirubin, Total 0.6 mg/dL (0.2-1.2); Calc. Creatinine Clearance 115 mL/min (70-130); Calcium 8.3 mg/dL (7.8-10.44); Carbon Dioxide 29 mmol/L (22-29); Chloride 100 mmol/L (98-107); Globulin 3.2 g/dL (2.4-3.5); Glucose 158 mg/dL (70-105); Potassium 3.2 mmol/L (3.5-5.1); Protein, Total 6.5 g/dL (6.0-8.3); Sodium 137 mmol/L (136-145)
[2020-11-20] MEDS ORDERED: Potassium Chloride 20 MEQ TAB PO SCH (10:30)
[2020-11-20] MEDS: Cholecalciferol 1,000 UNITS (25 MCG) TAB PO SCH (21:24)
[2020-11-21 05:09] LABS: #Lymphocytes 0.6 thou/uL (1.20-3.40); #Monocytes 0.7 thou/uL (0.11-0.59); #Neutrophils 10.1 thou/uL (1.40-6.50); %Basophils 0.1 % (0.0-1.0); %Eosinophils 0.1 % (0.0-10.0); %Lymphocytes 5.3 % (21.0-51.0); %Neutrophils 88.5 % (42.0-75.0); Hemoglobin 13.5 g/dL (12.0-16.0); Mean Corpuscular HGB CONC 33.8 g/dL (32.0-36.0); Mean Corpuscular Hemoglobin 31.9 pg (27.0-31.0); Mean Corpuscular Volume 94.2 fL (78.0-98.0); Mean Platelet Volume 8.8 fL (7.4-10.4); Platelet Count 242 thou/uL (130-400); RBC Distribution Width 12.8 % (11.5-14.5); Red Blood Cell (RBC) Count 4.23 mill/uL (4.20-5.40); White Blood Cell (WBC) Count 11.4 thou/uL (4.8-10.8)
[2020-11-21 05:29] LABS: ALT (SGPT) 30 U/L (8-55); AST (SGOT) 30 U/L (5-34); Alkaline Phosphatase 59 U/L (40-110); Anion Gap 11 mmol/L (10-20); BUN (Urea Nitrogen) 20 mg/dL (9.8-20.1); Bilirubin, Total 0.5 mg/dL (0.2-1.2); Calc. Creatinine Clearance 116 mL/min (70-130); Carbon Dioxide 28 mmol/L (22-29); Chloride 99 mmol/L (98-107); Glucose 169 mg/dL (70-105); Potassium 3.4 mmol/L (3.5-5.1); Sodium 135 mmol/L (136-145)
[2020-11-21] MEDS ORDERED: Potassium Chloride 20 MEQ TAB PO SCH (06:15)
[2020-11-21] MEDS: methylPREDNISolone Sod Succ 40 MG VIAL IVP SCH ×4 (06:26→23:32)
[2020-11-21] MEDS: Mometasone 200 MCG/Formoterol 5 MCG 120 PUFF INHALER INH SCH ×2 (06:26→19:20)
[2020-11-21] MEDS: Zinc Sulfate 220 MG CAP PO SCH (08:07)
[2020-11-21] MEDS: Enoxaparin Sodium 40 MG/0.4 ML SYRINGE SC SCH ×2 (08:07→20:52)
[2020-11-21] MEDS: Folic Acid 1 MG TAB PO SCH (08:07)
[2020-11-21] MEDS: Ascorbic Acid 500 mg Chewable Tablet PO SCH (08:07)
[2020-11-21] MEDS: Multivitamin W/ Minerals 1 TAB PO SCH (08:07)
[2020-11-21] MEDS: Aspirin Chewable 81 MG TAB PO SCH (08:07)
[2020-11-21] MEDS: Furosemide 20 MG TAB PO SCH ×2 (08:07→12:50)
[2020-11-21] MEDS: cefTRIAXone\\ROCEPHIN 1 GM in Sodium Chloride 0.9% 100 ML IVPB SCH (08:08)
[2020-11-21 11:16] LABS: Potassium 3.7 mmol/L (3.5-5.1)
[2020-11-21] MEDS: Cholecalciferol 1,000 UNITS (25 MCG) TAB PO SCH (20:53)
[2020-11-22 06:13] LABS: #Lymphocytes 0.6 thou/uL (1.20-3.40); #Monocytes 0.5 thou/uL (0.11-0.59); #Neutrophils 9.8 thou/uL (1.40-6.50); %Basophils 0.3 % (0.0-1.0); %Eosinophils 0.1 % (0.0-10.0); %Lymphocytes 5.5 % (21.0-51.0); %Monocytes 4.4 % (0.0-10.0); %Neutrophils 89.6 % (42.0-75.0); Hemoglobin 13.8 g/dL (12.0-16.0); Mean Corpuscular Hemoglobin 33.1 pg (27.0-31.0); Mean Corpuscular Volume 94.5 fL (78.0-98.0); Mean Platelet Volume 8.8 fL (7.4-10.4); Platelet Count 253 thou/uL (130-400); RBC Distribution Width 12.8 % (11.5-14.5); Red Blood Cell (RBC) Count 4.19 mill/uL (4.20-5.40)
[2020-11-22] MEDS: methylPREDNISolone Sod Succ 40 MG VIAL IVP SCH ×3 (06:16→18:47)
[2020-11-22 06:34] LABS: Chloride 98 mmol/L (98-107); Potassium 3.8 mmol/L (3.5-5.1); Sodium 138 mmol/L (136-145)
[2020-11-22] MEDS: Mometasone 200 MCG/Formoterol 5 MCG 120 PUFF INHALER INH SCH ×2 (06:34→18:46)
[2020-11-22 06:35] LABS: Calcium 8.2 mg/dL (7.8-10.44); Glucose 155 mg/dL (70-105)
[2020-11-22 06:36] LABS: Globulin 2.9 g/dL (2.4-3.5); Protein, Total 5.9 g/dL (6.0-8.3)
[2020-11-22 06:37] LABS: Anion Gap 15 mmol/L (10-20); Bilirubin, Total 0.5 mg/dL (0.2-1.2); Carbon Dioxide 29 mmol/L (22-29)
[2020-11-22 06:38] LABS: Alkaline Phosphatase 60 U/L (40-110)
[2020-11-22 06:39] LABS: BUN (Urea Nitrogen) 19 mg/dL (9.8-20.1); Calc. Creatinine Clearance 108 mL/min (70-130)
[2020-11-22 06:40] LABS: AST (SGOT) 31 U/L (5-34)
[2020-11-22 06:41] LABS: ALT (SGPT) 33 U/L (8-55)
[2020-11-22] MEDS: Folic Acid 1 MG TAB PO SCH (09:02)
[2020-11-22] MEDS: Enoxaparin Sodium 40 MG/0.4 ML SYRINGE SC SCH ×2 (09:03→21:24)
[2020-11-22] MEDS: Ascorbic Acid 500 mg Chewable Tablet PO SCH (09:03)
[2020-11-22] MEDS: Aspirin Chewable 81 MG TAB PO SCH (09:03)
[2020-11-22] MEDS: cefTRIAXone\\ROCEPHIN 1 GM in Sodium Chloride 0.9% 100 ML IVPB SCH (09:03)
[2020-11-22] MEDS: Multivitamin W/ Minerals 1 TAB PO SCH (09:03)
[2020-11-22] MEDS: Furosemide 20 MG TAB PO SCH ×2 (09:04→15:00)
[2020-11-22] MEDS: Zinc Sulfate 220 MG CAP PO SCH (09:04)
[2020-11-22] MEDS: Cholecalciferol 1,000 UNITS (25 MCG) TAB PO SCH (21:23)
[2020-11-23] MEDS: methylPREDNISolone Sod Succ 40 MG VIAL IVP SCH ×4 (00:57→17:26)
[2020-11-23 06:00] LABS: ALT (SGPT) 35 U/L (8-55); AST (SGOT) 37 U/L (5-34); Albumin 2.9 g/dL (3.5-5.0); Alkaline Phosphatase 64 U/L (40-110); Anion Gap 16 mmol/L (10-20); BUN (Urea Nitrogen) 20 mg/dL (9.8-20.1); Bilirubin, Total 0.5 mg/dL (0.2-1.2); Calc. Creatinine Clearance 110 mL/min (70-130); Calcium 8.2 mg/dL (7.8-10.44); Carbon Dioxide 25 mmol/L (22-29); Chloride 97 mmol/L (98-107); Globulin 3.2 g/dL (2.4-3.5); Glucose 161 mg/dL (70-105); Potassium 3.9 mmol/L (3.5-5.1); Protein, Total 6.1 g/dL (6.0-8.3); Sodium 134 mmol/L (136-145)
[2020-11-23 06:15] LABS: Mean Corpuscular HGB CONC 33.1 g/dL (32.0-36.0); Mean Corpuscular Hemoglobin 31.2 pg (27.0-31.0); Mean Corpuscular Volume 94.4 fL (78.0-98.0); Mean Platelet Volume 9.2 fL (7.4-10.4); Platelet Count 268 thou/uL (130-400); RBC Distribution Width 13.1 % (11.5-14.5); Red Blood Cell (RBC) Count 4.49 mill/uL (4.20-5.40)
[2020-11-23 06:21] LABS: Band 2 % (5-11); Lymphocytes 8 % (21-51); MDiff Complete? YES; Monocytes 3 % (0-10); Myelocyte 2 % (0-0); Neutrophil 85 % (42-75); White Blood Cell (WBC) Count 11.4 thou/uL (4.8-10.8)
[2020-11-23] MEDS: Mometasone 200 MCG/Formoterol 5 MCG 120 PUFF INHALER INH SCH (06:23)
[2020-11-23] MEDS: Multivitamin W/ Minerals 1 TAB PO SCH (08:08)
[2020-11-23] MEDS: Aspirin Chewable 81 MG TAB PO SCH (08:08)
[2020-11-23] MEDS: Ascorbic Acid 500 mg Chewable Tablet PO SCH (08:08)
[2020-11-23] MEDS: Enoxaparin Sodium 40 MG/0.4 ML SYRINGE SC SCH (08:08)
[2020-11-23] MEDS: Zinc Sulfate 220 MG CAP PO SCH (08:08)
[2020-11-23] MEDS: cefTRIAXone\\ROCEPHIN 1 GM in Sodium Chloride 0.9% 100 ML IVPB SCH (08:08)
[2020-11-23] MEDS: Folic Acid 1 MG TAB PO SCH (08:09)
[2020-11-23] MEDS: Furosemide 20 MG TAB PO SCH ×2 (08:09→13:13)
[2020-11-23 15:27] VITALS: BP 123/59; TEMP 97.9
== END 2020-11-23 18:16 | disposition home or self-care (01) | DRG 871 ==
LOC: ERS 13:20 → CCU 15:38 → 2SW 11-18 14:33
PROVIDERS: ADMIT Internal Medicine; ATTEND Internal Medicine
PROC: 02H633Z Insertion of Infusion Device into Right Atrium, Percutaneous Approach (ICD-10-PCS; principal; 2020-11-15)
PROC: 3E043XZ Introduction of Vasopressor into Central Vein, Percutaneous Approach (ICD-10-PCS; 2020-11-15)
DX: A41.89 Other specified sepsis (principal); U07.1 COVID-19; J12.82 Pneumonia due to coronavirus disease 2019; R57.1 Hypovolemic shock; J96.01 Acute respiratory failure with hypoxia; I13.0 Hypertensive heart and chronic kidney disease with heart failure and stage 1 through stage 4 chronic kidney disease, or unspecified chronic kidney disease; I42.9 Cardiomyopathy, unspecified; N17.9 Acute kidney failure, unspecified; N39.0 Urinary tract infection, site not specified; E87.1 Hypo-osmolality and hyponatremia; Z68.41 Body mass index [BMI] 40.0-44.9, adult; R65.20 Severe sepsis without septic shock; I73.9 Peripheral vascular disease, unspecified; I50.9 Heart failure, unspecified; E78.5 Hyperlipidemia, unspecified; I25.10 Atherosclerotic heart disease of native coronary artery without angina pectoris; E66.01 Morbid (severe) obesity due to excess calories; I34.0 Nonrheumatic mitral (valve) insufficiency; N18.30 Chronic kidney disease, stage 3 unspecified; D69.6 Thrombocytopenia, unspecified; E87.6 Hypokalemia; E88.09 Other disorders of plasma-protein metabolism, not elsewhere classified; Z86.711 Personal history of pulmonary embolism; Z90.49 Acquired absence of other specified parts of digestive tract; Z88.5 Allergy status to narcotic agent; Z79.82 Long term (current) use of aspirin; Z79.51 Long term (current) use of inhaled steroids; Z79.899 Other long term (current) drug therapy; Z87.891 Personal history of nicotine dependence; Z82.49 Family history of ischemic heart disease and other diseases of the circulatory system; Z81.3 Family history of other psychoactive substance abuse and dependence; Z83.3 Family history of diabetes mellitus
CPT/HCPCS: 0240U; 36415; 36556; 71045; 71275; 74177; 80048; 80053; 82553; 82728; 83605; 83735; 83880; 84145; 84484; 85007; 85025; 85027; 86140; 87040; 87077; 87086; 87186; 93005; 94760; 96365; 96366; 96374; J0696; J1100; J1650; J2405; J2920; J3475; J3480; J3490; J7050; Q9967

== ENCOUNTER 2022-03-03 14:10 | Outpatient (CLI) | payer OTHER | END 2022-03-03 14:11 | disposition home or self-care (01) | LOC: BICMAMMO 14:10 | PROVIDERS: ATTEND Nurse Practitioner Family | DX: Z12.31 Encounter for screening mammogram for malignant neoplasm of breast (principal) | CPT/HCPCS: 77067 ==

== ENCOUNTER 2023-02-13 11:22 | Emergency (ER) | payer OTHER ==
[2023-02-13 11:58] LABS: #Basophils 0.1 thou/uL (0.0-0.2); #Eosinphils 0.1 thou/uL (0.0-0.7); #Monocytes 0.5 thou/uL (0.11-0.59); %Basophils 0.5 % (0.0-1.0); %Eosinophils 1.5 % (0.0-10.0); %Monocytes 5.4 % (0.0-10.0); %Neutrophils 83.3 % (42.0-75.0); Hematocrit 40.2 % (36.0-47.0); Hemoglobin 13.6 g/dL (12.0-16.0); Mean Corpuscular HGB CONC 33.8 g/dL (32.0-36.0); Mean Corpuscular Hemoglobin 37.7 pg (27.0-31.0); Mean Corpuscular Volume 111.4 fl (78.0-98.0); Mean Platelet Volume 10.2 fL (7.4-10.4); Platelet Count 195 10x3/uL (130-400); RBC Distribution Width 13.6 % (11.5-14.5); Red Blood Cell (RBC) Count 3.61 mill/uL (4.20-5.40); White Blood Cell (WBC) Count 9.6 10x3/uL (4.8-10.8)
[2023-02-13 12:23] LABS: ALT (SGPT) 58 U/L (8-55); AST (SGOT) 56 U/L (5-34); Alkaline Phosphatase 100 U/L (40-110); Anion Gap 14 mmol/L (10-20); BUN (Urea Nitrogen) 9 mg/dL (9.8-20.1); Bilirubin, Total 0.9 mg/dL (0.2-1.2); Calc. Creatinine Clearance 0 mL/min (70-130); Calcium 9.4 mg/dL (7.8-10.44); Carbon Dioxide 23 mmol/L (23-31); CellaVision Operator ID LAB.KB; Chloride 106 mmol/L (98-107); Estimated GFR 69; Globulin 3.2 g/dL (2.4-3.5); Glucose 93 mg/dL (80-115); Macrocytosis SLIGHT = 6-15 cells HPF (0-5); Platelet Adequacy Comment Platelets Normal; Polychromasia SLIGHT = 2-3 cells HPF (0-2); Potassium 3.6 mmol/L (3.5-5.1); Protein, Total 7.2 g/dL (5.8-8.1); Sodium 139 mmol/L (136-145)
[2023-02-13 12:28] LABS: Troponin I Less than 0.010 ng/mL (< 0.028)
[2023-02-13 13:57] LABS: Bilirubin Negative (Negative); Blood, Urine Negative (Negative); CAUTI Indications for Culture Dysuria,urgency,freq; Clarity Clear (Clear); Glucose, Urine (Dipstick) Greater than 1000 mg/dL (Negative); Ketone, Urine Negative (Negative); Leukocyte Negative Leu/uL (Negative); Nitrite 2+ (Negative); Protein, Urine (Dipstick) Negative (Neg-Trace); RBC/HPF 0-3 HPF (0-3); Specific Gravity, Urine 1.023 (1.002-1.036); Squamous Epithelial 0-3 HPF (0-3); Urobilinogen Normal mg/dL (Less than 2); Yeast-Budding 1+ HPF (None Seen); pH, Urine 5.5 (5.0-9.0)
[2023-02-13 13:58] LABS: Bacteria/HPF 1+ HPF (None Seen); Urine Culture Reflex No No
== END 2023-02-13 15:11 | disposition home or self-care (01) ==
LOC: ERS 11:22
DX: N39.0 Urinary tract infection, site not specified (principal); I95.9 Hypotension, unspecified; R94.5 Abnormal results of liver function studies; I10 Essential (primary) hypertension
CPT/HCPCS: 36415; 71045; 80053; 81001; 83605; 84484; 85025; 87040; 87077; 87086; 87186; 93005

== ENCOUNTER 2024-04-29 12:49 | Outpatient (CLI) | payer OTHER | END 2024-04-29 12:50 | disposition home or self-care (01) | LOC: BICMAMMO 12:49 | PROVIDERS: ATTEND Nurse Practitioner Women's Health | DX: Z12.31 Encounter for screening mammogram for malignant neoplasm of breast (principal) | CPT/HCPCS: 77067 ==

== ENCOUNTER 2024-05-28 19:25 | Emergency (ER) | payer OTHER ==
[2024-05-28 21:23] LABS: #Basophils 0.05 10x3/uL (0.0-0.2); %Basophils 0.6 % (0.0-1.0); %Eosinophils 3.8 % (0.0-10.0); %Monocytes 7.7 % (0.0-10.0); %Neutrophils 66.5 % (42.0-75.0); Hematocrit 34.3 % (36.0-47.0); Mean Corpuscular Hemoglobin 41.5 pg (27.0-31.0); Mean Corpuscular Volume 118.7 fL (78.0-98.0); Mean Platelet Volume 11.2 fL (7.4-10.4); Platelet Count 122 10x3/uL (130-400); RBC Distribution Width 15.3 % (11.5-14.5); Red Blood Cell (RBC) Count 2.89 mill/uL (4.20-5.40)
[2024-05-28 21:29] LABS: ALT (SGPT) 14 U/L (8-55); AST (SGOT) 24 U/L (5-34); Albumin 3.2 g/dL (3.4-4.8); Alkaline Phosphatase 102 U/L (40-110); Anion Gap 15 mmol/L (10-20); BUN (Urea Nitrogen) 16 mg/dL (9.8-20.1); Bilirubin, Total 0.7 mg/dL (0.2-1.2); Calc. Creatinine Clearance 0 mL/min (70-130); Calcium 8.8 mg/dL (7.8-10.44); Carbon Dioxide 23 mmol/L (23-31); Chloride 106 mmol/L (98-107); Estimated GFR 65; Globulin 3.5 g/dL (2.4-3.5); Glucose 92 mg/dL (80-115); Potassium 4.7 mmol/L (3.5-5.1); Protein, Total 6.7 g/dL (5.8-8.1); Prothrombin Time 13.6 sec (12.0-14.7); Sodium 139 mmol/L (136-145)
[2024-05-28 21:30] LABS: PTT 31.2 sec (22.9-36.1)
[2024-05-29] MEDS ORDERED: Heparin 25,000 units/D5W 500 ML ONE (00:50)
== END 2024-05-29 02:17 | disposition short-term general hospital (02) ==
LOC: ERS 19:25
DX: I82.403 Acute embolism and thrombosis of unspecified deep veins of lower extremity, bilateral (principal); I11.0 Hypertensive heart disease with heart failure; I50.9 Heart failure, unspecified; E78.5 Hyperlipidemia, unspecified; I25.2 Old myocardial infarction; Z79.82 Long term (current) use of aspirin; Z87.891 Personal history of nicotine dependence; Z79.899 Other long term (current) drug therapy
CPT/HCPCS: 36415; 80053; 85025; 85610; 85730; 93970; 96365; J1644